=== PATIENT | male | born 1935 | race Caucasian/White ===

== ENCOUNTER 2020-12-26 10:02 | Outpatient (CLI) | payer MEDICARE, SELFPAY ==
[2020-12-26 10:50] LABS: Alanine Aminotransferase 16 U/L (4-50); Albumin Level 3.9 g/dL (3.5-5.1); Alkaline Phosphatase 85 U/L (38-126); Anion Gap 4 mmol/L (8-16); Aspartate Amino Transferase 24 U/L (17-59); Bilirubin,Total 0.6 mg/dL (0.2-1.3); Blood Urea Nitrogen 25 mg/dL (9-20); Calcium 8.9 mg/dL (8.4-10.2); Carbon Dioxide 29 mmol/L (22-30); Chloride 106 mmol/L (98-107); Cholesterol 137 mg/dL (0-200); Estimated Glomerular Filt Rate > 60; Glucose 97 mg/dL (75-110); HDL Direct 55 mg/dL; Potassium 4.1 mmol/L (3.4-5.0); Sodium 139 mmol/L (137-145); Triglycerides 60 mg/dL (<150)
[2020-12-26 11:01] LABS: LDL Cholesterol Direct 55 mg/dL
[2020-12-26 11:19] LABS: Creatinine Urine 169.7 mg/dL
[2020-12-26 11:24] LABS: MALB Creatinine Ratio < 3.5 mg/g (0-30); Microalbumin Urine Random < 6.0 mg/L (0-16.7)
[2020-12-26 11:37] LABS: Vitamin D 25 Hydroxy 47.6 ng/mL
== END 2020-12-26 10:03 | disposition home or self-care (01) ==
PROVIDERS: PCP Internal Medicine; Visit Provider Internal Medicine
DX: E11.65 Type 2 diabetes mellitus with hyperglycemia (principal); E78.5 Hyperlipidemia, unspecified; E55.9 Vitamin D deficiency, unspecified
CPT/HCPCS: 36415; 80053; 80061; 82043; 82306; 83036

== ENCOUNTER 2021-07-07 09:40 | Outpatient (CLI) | payer MEDICARE, SELFPAY ==
[2021-07-07 10:18] LABS: Alanine Aminotransferase 19 U/L (4-50); Albumin Level 4.2 g/dL (3.5-5.1); Alkaline Phosphatase 90 U/L (38-126); Anion Gap 5 mmol/L (8-16); Aspartate Amino Transferase 23 U/L (17-59); Bilirubin,Total 0.6 mg/dL (0.2-1.3); Blood Urea Nitrogen 23 mg/dL (9-20); Carbon Dioxide 30 mmol/L (22-30); Chloride 104 mmol/L (98-107); Cholesterol 150 mg/dL (0-200); Estimated Glomerular Filt Rate > 60; Glucose 101 mg/dL (65-110); HDL Direct 59 mg/dL; Potassium 4.4 mmol/L (3.4-5.0); Sodium 139 mmol/L (137-145); Triglycerides 85 mg/dL (<150)
[2021-07-07 10:30] LABS: LDL Cholesterol Direct 70 mg/dL
== END 2021-07-07 09:41 | disposition home or self-care (01) ==
PROVIDERS: PCP Internal Medicine; Visit Provider Internal Medicine
DX: E55.9 Vitamin D deficiency, unspecified (principal); I10 Essential (primary) hypertension; E78.5 Hyperlipidemia, unspecified
CPT/HCPCS: 36415; 80053; 80061; 82306

== ENCOUNTER 2022-01-12 09:11 | Outpatient (CLI) | payer MEDICARE, SELFPAY ==
[2022-01-12 09:41] LABS: Alanine Aminotransferase 17 U/L (4-50); Alkaline Phosphatase 92 U/L (38-126); Anion Gap 5 mmol/L (8-16); Aspartate Amino Transferase 23 U/L (17-59); Bilirubin,Total 0.7 mg/dL (0.2-1.3); Blood Urea Nitrogen 23 mg/dL (9-20); Calcium 8.8 mg/dL (8.4-10.2); Carbon Dioxide 28 mmol/L (22-30); Chloride 104 mmol/L (98-107); Cholesterol 156 mg/dL (0-200); Estimated Glomerular Filt Rate > 60; Glucose 106 mg/dL (65-110); HDL Direct 59 mg/dL; Potassium 4.4 mmol/L (3.4-5.0); Sodium 137 mmol/L (137-145); Triglycerides 72 mg/dL (<150)
[2022-01-12 09:53] LABS: LDL Cholesterol Direct 67 mg/dL
[2022-01-12 10:14] LABS: Prostate Specific Antigen < 0.1 ng/mL (< OR = 4.0)
[2022-01-12 10:22] LABS: Vitamin D 25 Hydroxy 54.8 ng/mL
== END 2022-01-12 09:12 | disposition home or self-care (01) ==
PROVIDERS: PCP Internal Medicine; Visit Provider Nurse Practitioner
DX: Z12.5 Encounter for screening for malignant neoplasm of prostate (principal); E78.5 Hyperlipidemia, unspecified; E55.9 Vitamin D deficiency, unspecified
CPT/HCPCS: 36415; 80053; 80061; 82306; 84153; G0103

== ENCOUNTER 2022-01-21 07:50 | Outpatient (CLI) | payer MEDICARE, SELFPAY ==
--- NOTE | ~2022-01-21 | XR_ITS ---
EXAMINATION: XR UGIAC w barium swallow EXAM DATE: 01/21/2022 08:42 INDICATION: R13.10 - Dysphagia, unspecified. TECHNIQUE: Standard single and double contrast barium esophagram and upper GI examination was perform ed by radiologist Isaac Garcia M.D. Pulsed dose reduction fluoroscopy was used with fluoroscopic time of 1.1 minutes. The DAP for this procedure was 2 Gycm2. A total of 197 images obtained for the exa m. FINDINGS: Evaluation esophagus demonstrated moderate amount of vallecular sinus residual. On one of t he swallows, penetration was demonstrated, and barium tract below the vocal cords, trace aspiration. No esophageal stricture or diverticulum. 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 Stomach otherwise unremarkable. Unremarkable duodenum. IMPRESSION: 1. Vallecular sinus residual, trace penetration and aspiration demonstrated; consider modified xiomara massey with speech pathologist. 2. Small sliding gastroesophageal hiatal hernia, reflux. Reviewed, dictated and finalized at location A. IMPRESSION: 1. Vallecular sinus residual, trace penetration and aspiration demonstrated; c onsider modified esophagram with speech pathologist. 2. Small sliding gastroesophageal hiatal hernia, reflux.
== END 2022-01-21 07:51 | disposition home or self-care (01) ==
PROVIDERS: PCP Internal Medicine; Visit Provider Internal Medicine
DX: R13.10 Dysphagia, unspecified (principal); K44.9 Diaphragmatic hernia without obstruction or gangrene
CPT/HCPCS: 74246

== ENCOUNTER 2022-04-08 14:26 | Outpatient (CLI) | payer MEDICARE, SELFPAY | END 2022-04-08 14:27 | disposition home or self-care (01) | LOC: ANHAUDASC 14:27 | PROVIDERS: PCP Internal Medicine; Visit Provider Otolaryngology | DX: H90.6 Mixed conductive and sensorineural hearing loss, bilateral (principal) | CPT/HCPCS: 92557; 92567 ==

== ENCOUNTER 2022-09-10 00:45 | Day surgery (SDC) | payer MEDICARE, SELFPAY ==
[2022-09-01 15:15] VITALS: BMI 25.4
[2022-09-10 09:37] VITALS: BP 165/87; PULSE 63; RESP 22; TEMP 36.4; O2SAT 98; BMI 25.2
--- NOTE | 2022-09-10 09:39 | PM.HPGS ---
History of Present Illness History of Present Illness Consent: Risks, benefits, and alternatives have been discussed and questions answered. Patient agrees to proceed with procedure. Chief complaint: oropharyngeal dysphagia and GERD Narrative: Delano Bruno is a 87 year old male With swallowing issues. Sometimes many hours after meal he will regurgitate food like peanuts are peaches. He had a barium swallow: UGI with barium swallow: moderate?Vallecular sinus residual, trace penetration and aspiration demonstrated and Small sliding gastroesophageal hiatal hernia, reflux-there was no evidence of esophageal stricture or diverticulum (recs reviewed). He feels that things sometimes go down the wrong throat he has not had food get stuck on the way down. Review of Systems Review of Systems: All systems reviewed & are unremarkable except as noted in HPI and below PMFSH Past Medical History Medical History Acute embolism and thrombosis of other specified deep vein of right lower extremity Aspiration into airway Bad memory Chronic pain of right knee Dermatitis, unspecified Dysphagia Essential (primary) hypertension GERD with esophagitis H/O prostate cancer Hyperlipidemia, unspecified Mixed incontinence urge and stress Other chronic pain Type 2 diabetes mellitus with hyperglycemia Vitamin D deficiency, unspecified Family History Family History Father Malignant neoplasm of prostate Patient's father is Mother Family history of heart disease in male family member before age 55 Family history of cardiovascular disease Other Family history of arthritis Family history of malignant neoplasm Hypertension Social History Social History Smoking status: Never smoker Second hand tobacco smoke exposure: No Alcohol intake: former Substance use: never Substance use type: does not use Living arrangements: with family Spiritual care concerns: No Meds Home Medications and Allergies Home Medications Medication Instructions Recorded Confirmed Type aspirin 81 mg tablet,delayed 81 mg PO DAILY 01/23/20 09/10/22 History release fluticasone propionate 50 See Rx Instructions intranasal 01/23/20 09/10/22 History mcg/actuation nasal DAILY PRN Allergy Symptoms spray,suspension propylene glycol 0.6 % eye drops 1 drop ophthalmic (eye) DAILY PRN 01/23/20 09/10/22 History (Lubricant Eye (propylene glycol)) Dry Eye(S) vitamins A,C,U-zitz-kidkyd 14,320 1 cap PO DAILY 01/23/20 09/10/22 History unit-226 mg-200 unit capsule (PreserVision AREDS) multivitamin 1 tablet PO DAILY 01/05/21 09/10/22 History simvastatin 20 mg tablet See Rx Instructions .Route 05/03/22 09/10/22 Rx .COMPLEX #90 tabs rivaroxaban 10 mg tablet (Xarelto) See Rx Instructions .Route 08/04/22 09/10/22 Rx .COMPLEX #90 tabs Allergies Allergy/AdvReac Type Severity Reaction Status Date / Time No Known Allergies Allergy Verified 09/10/22 09:36 Exam Const: General: alert Orientation/consciousness: patient oriented x3 Resp: Auscultation: clear to auscultation bilaterally Cardio: Rhythm: regular rhythm GI: GI Palp: Yes Soft to palpation and No Tenderness to palpation present (GI) Neuro: General: patient oriented x3 Assessment and Plan Assessment and plan (1) Dysphagia: Code(s): R13.10 - Dysphagia, unspecified Status: Acute Assessment and Plan: EGD with possible biopsy or dilatation or cautery.
[2022-09-10] MEDS: LACTATED RINGERS 1,000 ML 150 ML IV CONT (10:05)
--- NOTE | 2022-09-10 10:12 | WPDANESEPPF ---
Anes - Initial Pre Proc Eval Procedure: Operation Date: 09/10/22 10:30 Proposed Procedures p Esophagogastroduodenoscopy EGD - Craig Avendano MD Date/Time: 09/10/22 10:12 Surgeon: Craig Avendano MD Pre Op Diagnosis: oropharyngeal dysphagia and GERD Patient Data Age: 87 Gender: M Height: 1.75 m Weight: 77.5 kg Last Vital Signs Temp 97.6 F 09/10/22 09:37 Pulse 63 09/10/22 09:37 Resp 22 H 09/10/22 09:37 BP 165/87 H 09/10/22 09:37 Pulse Ox 98 09/10/22 09:37 O2 Del Method Room Air 09/10/22 09:37 Allergies Allergy/AdvReac Type Severity Reaction Status Date / Time No Known Allergies Allergy Verified 09/10/22 09:36 Home Medications Medication Instructions Recorded Confirmed Type aspirin 81 mg tablet,delayed 81 mg PO DAILY 01/23/20 09/10/22 History release fluticasone propionate 50 See Rx Instructions intranasal 01/23/20 09/10/22 History mcg/actuation nasal DAILY PRN Allergy Symptoms spray,suspension propylene glycol 0.6 % eye drops 1 drop ophthalmic (eye) DAILY PRN 01/23/20 09/10/22 History (Lubricant Eye (propylene glycol)) Dry Eye(S) vitamins A,C,B-wfyv-mmvlid 14,320 1 cap PO DAILY 01/23/20 09/10/22 History unit-226 mg-200 unit capsule (PreserVision AREDS) multivitamin 1 tablet PO DAILY 01/05/21 09/10/22 History simvastatin 20 mg tablet See Rx Instructions .Route 05/03/22 09/10/22 Rx .COMPLEX #90 tabs rivaroxaban 10 mg tablet (Xarelto) See Rx Instructions .Route 08/04/22 09/10/22 Rx .COMPLEX #90 tabs Patient hx anesthesia problems: none Family hx anesthesia problems: none Results Review: All pre-operative results and documents have been reviewed as part of the pre-operative evaluation. [facility] Past Medical History Medical History Acute embolism and thrombosis of other specified deep vein of right lower extremity Aspiration into airway Bad memory Chronic pain of right knee Dermatitis, unspecified Dysphagia Essential (primary) hypertension GERD with esophagitis H/O prostate cancer Hyperlipidemia, unspecified Mixed incontinence urge and stress Other chronic pain Type 2 diabetes mellitus with hyperglycemia Vitamin D deficiency, unspecified Family History Family History Father Malignant neoplasm of prostate Patient's father is Mother Family history of heart disease in male family member before age 55 Family history of cardiovascular disease Other Family history of arthritis Family history of malignant neoplasm Hypertension Social History Social History Smoking status: Never smoker Second hand tobacco smoke exposure: No Alcohol intake: former Substance use: never Substance use type: does not use Living arrangements: with family Spiritual care concerns: No Anes - Eval Final PreProcedure Day of Procedure 09/10/22 10:12 Patient weight: normal Heart: regular rate and rhythm Lungs: clear to auscultation Airway: Mallampati scale class III Neurological: alert and oriented Last oral intake: >/= 8 hours ASA classification: III Emergent: no Anesthetic plan: proceed Anesthesia type and monitoring: general GIVS and standard monitoring Results Review: All pre-operative results and documents have been reviewed as part of the pre-operative evaluation. Informed Consent: The patient's anesthetic plan and its attendant risks and benefits were discussed with the patient/family/POA. Questions were solicited and answers provided to the satisfaction of the patient/family/POA.
[2022-09-10 10:30] VITALS: BP 147/81; PULSE 61; RESP 18; O2SAT 99
[2022-09-10 10:40] VITALS: BP 123/68; PULSE 52; RESP 18; O2SAT 99
[2022-09-10 10:50] VITALS: BP 136/68; PULSE 49; RESP 18; O2SAT 99
== END 2022-09-10 11:06 | disposition home or self-care (01) ==
PROVIDERS: PCP Internal Medicine; Visit Provider Internal Medicine Gastroenterology
PROC: 0DJ08ZZ Inspection of Upper Intestinal Tract, Via Natural or Artificial Opening Endoscopic (ICD-10-PCS; CPT 43235; principal; 2022-09-10 10:30)
DX: R13.12 Dysphagia, oropharyngeal phase (principal); K21.9 Gastro-esophageal reflux disease without esophagitis; K22.2 Esophageal obstruction; Z86.718 Personal history of other venous thrombosis and embolism; I10 Essential (primary) hypertension; Z85.46 Personal history of malignant neoplasm of prostate; E78.5 Hyperlipidemia, unspecified; E11.9 Type 2 diabetes mellitus without complications; E55.9 Vitamin D deficiency, unspecified
CPT/HCPCS: 43239; 88305; J2704; J7120

== ENCOUNTER 2022-09-14 09:45 | Outpatient (CLI) | payer MEDICARE, SELFPAY ==
[2022-09-14 10:55] LABS: Basophils Absolute Auto 0.1 K/mm3 (0.0-0.1); Basophils Percent Auto 1.4 % (0.2-1.2); Eosinophils Absolute Auto 0.1 K/mm3 (0-0.3); Eosinophils Percent Auto 2.1 % (0-4.4); Hematocrit 42.4 % (42.0-52.0); Hemoglobin 13.6 g/dL (14.0-18.0); Immature Granulocyte Absolute 0.02 K/mm3 (0.00-0.031); Immature Granulocyte Percent A 0.3 % (0-0.5); Lymphocytes Absolute Auto 1.02 K/mm3 (0.9-3.2); Lymphocytes Percent Auto 17.7 % (18.3-44.2); Mean Corpuscular HGB Conc 32.1 g/dl (32-36); Mean Corpuscular Hemoglobin 31.1 pg (26-34); Mean Corpuscular Volume 96.8 fl (80-100); Mean Platelet Volume 10.4 fl (7.4-10.4); Monocytes Absolute Auto 0.5 K/mm3 (0.1-0.6); Monocytes Percent Auto 8.7 % (2.6-8.5); Neutrophils Percent Auto 69.8 % (45.5-73.1); Platelet Count Result 237 k/mm3 (150-375); Red Blood Count 4.38 M/mm3 (4.6-6.20); Red Cell Distribution Width 13.7 % (11.5-14.5); White Blood Count 5.8 K/mm3 (4.5-10.0)
[2022-09-14 11:07] LABS: Alanine Aminotransferase 21 U/L (6-50); Alkaline Phosphatase 91 U/L (38-126); Anion Gap 3 mmol/L (8-16); Aspartate Amino Transferase 24 U/L (17-59); Bilirubin,Total 0.5 mg/dL (0.2-1.3); Blood Urea Nitrogen 25 mg/dL (9-20); Calcium 8.7 mg/dL (8.4-10.2); Carbon Dioxide 32 mmol/L (22-30); Chloride 101 mmol/L (98-107); Cholesterol 165 mg/dL (0-200); Estimated Glomerular Filt Rate > 60; Glucose 96 mg/dL (65-110); HDL Direct 55 mg/dL; Potassium 4.5 mmol/L (3.4-5.0); Sodium 136 mmol/L (137-145); Triglycerides 69 mg/dL (<150)
[2022-09-14 11:17] LABS: LDL Cholesterol Direct 77 mg/dL
== END 2022-09-14 09:46 | disposition home or self-care (01) ==
LOC: ANHLAB 09:46
PROVIDERS: PCP Internal Medicine; Visit Provider Internal Medicine
DX: E78.5 Hyperlipidemia, unspecified (principal); D64.9 Anemia, unspecified; I10 Essential (primary) hypertension
CPT/HCPCS: 36415; 80053; 80061; 85025

== ENCOUNTER 2022-09-24 08:30 | Emergency (ER) | payer MEDICARE, SELFPAY ==
--- NOTE | ~2022-09-24 | XR_ITS ---
EXAMINATION: XR hip LT 2V w AP pelvis DATE: 09/24/2022 09:05 INDICATION: Pelvic pain. Left back pain. TECHNIQUE: An anteroposterior view of the pelvis and 2 views of left hip were obtained. COMPARISON: None. FINDINGS: Bone alignment is normal. No fracture. There is moderate lumbar spondylosis. There is moder ate osteoarthritis of the hips. Surgical clips overlie the pelvis. IMPRESSION: 1. Moderate osteoarthritis of the hips. Reviewed, dictated and finalized at location A. EMS REQUIREMENTS PLANNER
[2022-09-24 08:40] VITALS: BP 138/59; PULSE 66; RESP 16; TEMP 37; O2SAT 99
--- NOTE | 2022-09-24 09:18 | ED.GENADULT ---
HPI - General Adult General Chief complaint: Extremity Injury, Lower Stated complaint: lower back pain, lt side hip injury Time Seen by Provider: 09/24/22 08:55 Source: patient, family, RN notes reviewed and old records reviewed Mode of arrival: ambulatory Limitations: no limitations History of Present Illness HPI narrative: 87-year-old male accompanied by presents to [facility] with complaints of fall last evening while he was trying to put his pajama pants on in the bathroom. Patient reports that he lost his balance and fell and hit his left lower back area and hip on the ridge of the walk in shower, Patient states he mainly has pain now when he tries to turn over in bed and change positions. Patient is on blood thinner states the doctor told him he could take an Ibuprofen once in a great while and he took 2 last night. Patient able to move left hip on own power with no restriction or acute pain, denies any urinary discomfort,pain or visible blood. Patient denies hitting his head or any feelings of dizziness prior to fall or any LOC at time of fall. MD complaint: pain left lower back and hip area from falll Onset (ago): day(s) (last night at bedtime) Location: back and left Radiation: non-radiation Severity scale (1-10): 4 Treatments prior to arrival: NSAID and other (Tylenol) Related Data Home Medications Medication Instructions Recorded Confirmed aspirin 81 mg tablet,delayed 81 mg PO DAILY 01/23/20 09/24/22 release fluticasone propionate 50 See Rx Instructions intranasal 01/23/20 09/24/22 mcg/actuation nasal DAILY PRN Allergy Symptoms spray,suspension propylene glycol 0.6 % eye drops 1 drop ophthalmic (eye) DAILY PRN 01/23/20 09/24/22 (Lubricant Eye (propylene glycol)) Dry Eye(S) vitamins A,C,B-ntss-vqbxma 14,320 1 cap PO DAILY 01/23/20 09/24/22 unit-226 mg-200 unit capsule (PreserVision AREDS) multivitamin 1 tablet PO DAILY 01/05/21 09/24/22 Allergies Allergy/AdvReac Type Severity Reaction Status Date / Time No Known Allergies Allergy Verified 09/17/22 10:10 Review of Systems Review of Systems: CONSTITUTIONAL: Denies fever, chills, or sweats. EYES: Denies visual changes, redness, or discharge. ENT: Denies rhinorrhea, congestion, sore throat, or otalgia. CARDIOVASCULAR: Denies chest pain, palpitations, or edema. RESPIRATORY: Denies cough or dyspnea. GASTROINTESTINAL: Denies abdominal pain, nausea, vomiting, or diarrhea. GENITOURINARY: Denies dysuria or hematuria. SKIN: Denies rash or itching. MUSCULOSKELETAL: Reports left lower back pain and left hip region pain, joint pain, or myalgia. NEUROLOGIC: Denies headache, numbness, or weakness. PSYCHIATRIC: Denies anxiety or depression. All systems reviewed & are unremarkable except as noted in HPI and below PMFSH Past Medical History Medical History (Updated 09/24/22 @ 18:17 by Rin Meyer NP) Acute embolism and thrombosis of other specified deep vein of right lower extremity Aspiration into airway Bad memory Chronic pain of right knee Dermatitis, unspecified Dysphagia Essential (primary) hypertension GERD with esophagitis H/O prostate cancer Hyperlipidemia, unspecified Mixed incontinence urge and stress Other chronic pain Type 2 diabetes mellitus with hyperglycemia Vitamin D deficiency, unspecified Surgical History Surgical History (Updated 09/24/22 @ 18:18 by Rin Meyer NP) H/O bilateral inguinal hernia repair H/O cataract removal with insertion of prosthetic lens bilateral H/O heart artery stent H/O umbilical hernia repair Status post total knee replacement, right Family History Family History Father Malignant neoplasm of prostate Patient's father is Mother Family history of heart disease in male family member before age 55 Family history of cardiovascular disease Other Family history of arthritis Family history of malignant neoplasm Hypertension
== END 2022-09-24 09:49 | disposition home or self-care (01) ==
PROVIDERS: Emergency Provider Registered Nurse; PCP Internal Medicine
DX: M25.552 Pain in left hip (principal); M54.50 Low back pain, unspecified; I10 Essential (primary) hypertension; K21.00 Gastro-esophageal reflux disease with esophagitis, without bleeding; E78.5 Hyperlipidemia, unspecified; E11.9 Type 2 diabetes mellitus without complications; Z86.718 Personal history of other venous thrombosis and embolism; Z85.46 Personal history of malignant neoplasm of prostate; Z98.42 Cataract extraction status, left eye; Z98.41 Cataract extraction status, right eye; Z96.1 Presence of intraocular lens; Z95.5 Presence of coronary angioplasty implant and graft; Z96.651 Presence of right artificial knee joint; Z79.82 Long term (current) use of aspirin
CPT/HCPCS: 73502; 99213; G0463

== ENCOUNTER → 2022-10-14 15:09 | Outpatient (CLI) | payer MEDICARE, SELFPAY ==
--- NOTE | ~2022-10-14 | XR_ITS ---
XR chest 2V DATE: 10/14/2022 15:30 INDICATION: Burning chest pain TECHNIQUE: 2 views COMPARISON: None FINDINGS: There is bilateral hyperinflation suggesting COPD. No pulmonary infiltrate or consolidation , pleural effusion or pulmonary vascular congestion or pneumothorax is detected. Normal heart size. Mild aortic tortuosity. No hilar or mediastinal enlargement. Diffuse osteopenia. Left rotator cuff atrophy. IMPRESSION: Bilateral hyperinflation suggesting COPD Reviewed, dictated and finalized at location A. GE REGISTER NURSE
== END ==
PROVIDERS: PCP Internal Medicine; Visit Provider Nurse Practitioner Adult Health
DX: J98.4 Other disorders of lung (principal); R07.89 Other chest pain
CPT/HCPCS: 71046

== ENCOUNTER 2022-10-18 12:01 | Inpatient (IN) | payer MEDICARE, SELFPAY ==
[2022-10-18] VITALS (20 sets, daily range): BP systolic 124–150; BP diastolic 52–85; PULSE 40–89; RESP 9–25; TEMP 36.2–36.7; O2SAT 97–100; BMI 24.6
--- NOTE | ~2022-10-18 | XR_ITS ---
XR chest 1V portable 10/18/2022 12:25 Indication: Chest pressure Procedure: AP portable chest Comparison: 10/14/2022 Findings: Heart size upper normal. No focal air space disease, pulmonary edema, pleural effusion or s uspected pneumothorax. The lungs are hyperinflated which is consistent with, but not diagnostic of ch ronic obstructive pulmonary disease. Prominent left nipple shadow. Impression: 1: No acute cardiopulmonary disease. Reviewed, dictated and finalized at location A. EE FARMER Impression: 1: No acute cardiopulmonary disease.
--- NOTE | 2022-10-18 12:04 | ECG_ITS ---
Measurements Intervals [place] Rate: 52 P: 68 PA: 174 QRS: 55 QRSD: 92 T: 87 QT: 480 QTc: 448 Interpretive Statements SINUS BRADYCARDIA POSSIBLE LEFT ATRIAL ENLARGEMENT DELAYED PRECORDIAL R/S TRANSITION T WAVE ABNORMALITY IN ANTERIOR LEADS- CONSIDER ISCHEMIA BASELINE ARTIFACT- II, III ABNORMAL ECG NO PREVIOUS ECG AVAILABLE FOR COMPARISON Electronically Signed On 10-18-2022 12:11:22 PROJECT ARCHITECT by Kennedy Vincent D.O.
--- NOTE | 2022-10-18 12:13 | ED.CHESTPAIN ---
HPI - Chest Pain General Chief Complaint: Recheck/Abnormal Lab/Rx Stated Complaint: ekg changes, syncopal at plastic molder office History of Present Illness HPI narrative: Pt sent to ER from stress lab. Pt had CP and SOB per EMS during stress test. Pt was given nitro SL after and CP resolved. Pt was told he could get dressed and then pt felt lightheaded and weak and had syncopal episode. Pt currently is pain free and says he feels better now. Pt received IVF bolus from EMS. Pt says has been having intermittent CP and SOB for last few weeks. Pt also tested positive for covid a couple of weeks ago. Related Data Home Medications Medication Instructions Recorded Confirmed aspirin 81 mg tablet,delayed 81 mg PO HS 01/23/20 10/18/22 release fluticasone propionate 50 See Rx Instructions intranasal 01/23/20 10/18/22 mcg/actuation nasal DAILY PRN Allergy Symptoms spray,suspension propylene glycol 0.6 % eye drops 1 drop ophthalmic (eye) DAILY PRN 01/23/20 10/18/22 (Lubricant Eye (propylene glycol)) Dry Eye(S) vitamins A,C,C-imuc-ijpxkf 14,320 1 cap PO DAILY 01/23/20 10/18/22 unit-226 mg-200 unit capsule (PreserVision AREDS) rivaroxaban 10 mg tablet (Xarelto) 10 mg PO DAILY 10/18/22 10/18/22 simvastatin 20 mg tablet 20 mg PO HS 10/18/22 10/18/22 Allergies Allergy/AdvReac Type Severity Reaction Status Date / Time No Known Allergies Allergy Verified 09/17/22 10:10 Review of Systems Review of Systems: All systems reviewed & are unremarkable except as noted in HPI and below PMFSH Past Medical History Medical History (Updated 10/18/22 @ 18:31 by Elena Miller III, DO) Acute embolism and thrombosis of other specified deep vein of right lower extremity Chronic anticoagulation Chronic pain of right knee Coronary artery disease Stent to diagonal in March 2013. Diverticulosis Dyslipidemia Gastroesophageal reflux disease Hypertension Kidney stones Mixed incontinence urge and stress Prostate cancer (2002) Pulmonary embolism (2002) Following prostatectomy. Type 2 diabetes mellitus Vitamin D deficiency Surgical History Surgical History (Updated 10/18/22 @ 14:58 by Meagan Forde PA-C) History of arthroscopy of both knees History of bilateral inguinal hernia repair History of cardiac catheterization March 2013: Stent to diagonal 1. November 2014: No significant obstructive lesions. Stent to D1 ostium widely patent. 40 to 50% OM and 40% distal RCA (no change consistent with 2012). History of cataract extraction with lens replacement History of colonoscopy with polypectomy History of coronary artery stent placement Stent to diagonal branch in March 2013. History of esophagogastroduodenoscopy (09/2022) Schatzki's ring. History of prostatectomy (2002) History of repair of right rotator cuff (07/2015) History of right knee joint replacement History of tonsillectomy and adenoidectomy History of ventral hernia repair Family History Family History Father Malignant neoplasm of prostate Patient's father is Mother Family history of heart disease in male family member before age 55 Family history of cardiovascular disease Other Family history of arthritis Family history of malignant neoplasm Hypertension Social History Social History (Updated 10/18/22 @ 14:59 by Meagan Forde PA-C) Social History: Surrogate medical decision maker: Luci Bruno (spouse) or Rin Cooper (daughter). Code status: Full code. Smoking status: Never smoker Second hand tobacco smoke exposure: No Alcohol intake: never Substance use: never Substance use type: does not use Lack of Transportation: No Lack of Food: Never True Current Housing: Decline to Answer Concerned About Future Housing: Decline to Answer Difficulty Paying Gas/Electric Bills: Decline to Answer Difficulty Paying for Meds: Decline to Answer Currently Unem
[2022-10-18 12:19] LABS: Basophils Absolute Auto 0.1 K/mm3 (0.0-0.1); Basophils Percent Auto 1.4 % (0.2-1.2); Eosinophils Absolute Auto 0.1 K/mm3 (0-0.3); Hematocrit 38.2 % (42.0-52.0); Hemoglobin 12.5 g/dL (14.0-18.0); Immature Granulocyte Absolute 0.02 K/mm3 (0.00-0.031); Immature Granulocyte Percent A 0.4 % (0-0.5); Lymphocytes Absolute Auto 1.13 K/mm3 (0.9-3.2); Lymphocytes Percent Auto 22.1 % (18.3-44.2); Mean Corpuscular HGB Conc 32.7 g/dl (32-36); Mean Corpuscular Hemoglobin 31.4 pg (26-34); Monocytes Absolute Auto 0.4 K/mm3 (0.1-0.6); Monocytes Percent Auto 6.8 % (2.6-8.5); Neutrophils Absolute Auto 3.4 K/mm3 (1.3-6.7); Neutrophils Percent Auto 67.3 % (45.5-73.1); Platelet Count Result 265 k/mm3 (150-375); Red Blood Count 3.98 M/mm3 (4.6-6.20); White Blood Count 5.1 K/mm3 (4.5-10.0)
[2022-10-18 12:30] LABS: Alanine Aminotransferase 22 U/L (6-50); Albumin Level 3.6 g/dL (3.5-5.1); Alkaline Phosphatase 105 U/L (38-126); Anion Gap 3 mmol/L (8-16); Aspartate Amino Transferase 23 U/L (17-59); Bilirubin,Total 0.6 mg/dL (0.2-1.3); Blood Urea Nitrogen 24 mg/dL (9-20); Calcium 8.4 mg/dL (8.4-10.2); Carbon Dioxide 27 mmol/L (22-30); Chloride 102 mmol/L (98-107); Estimated CRCL calculation 52 ml/min; Estimated Glomerular Filt Rate > 60; Glucose 140 mg/dL (65-110); Lipase 87 U/L (23-300); Potassium 4.2 mmol/L (3.4-5.0); Sodium 132 mmol/L (137-145)
[2022-10-18 12:35] LABS: INR 1.2; Prothrombin Time 14.8 Seconds (11.1-14.7)
[2022-10-18] MEDS: ASPIRIN 81 MG CHEWABLE TABLET 324 MG PO (12:40)
[2022-10-18 12:45] LABS: Troponin I 0.086 ng/mL (0.000-0.034)
[2022-10-18 12:48] LABS: NT Pro B Type Natriuretic Pept 950 pg/mL (19.9-100)
[2022-10-18 12:55] LABS: Influenza A QL RT-PCR Negative (Negative); Influenza B QL RT-PCR Negative (Negative); SARS-CoV-2 RNA PCR Positive
--- NOTE | 2022-10-18 14:00 | PM.IMHP ---
H&P: HPI History of Present Illness Date/Time: 10/18/22 14:00 Chief Complaint: Syncope following stress test with EKG changes. 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 He and his family visited 1 of their sons in [place], [place] over [place] time and several of them, including the patient, came down with COVID. His symptoms have improved though he continues to have episodes of shortness of breath (patient reports a burning sensation with deep inspiration) and occasional aching discomfort in his arms and left side. The aching discomfort in the arms and side tend to occur with activity and are improved with rest. 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 During that test he reportedly had some EKG changes and once again started to have mild shortness of breath and arm discomfort. The test was stopped and he was given a nitroglycerin tablet with resolution of his symptoms. He was told that he could get dressed and return to the dental front office assistant. Once he stood up however he became extremely weak and nearly blacked out; luckily staff for there to help him. He was brought to the ED for evaluation and he is being admitted for Cardiology consultation possible cardiac catheterization tomorrow. Troponin is mildly elevated but has remained flat with a peak troponin 0.095. At the time my evaluation he is resting comfortably and has no complaints. He specifically denies vertigo, lightheadedness, dizziness, current chest pain, pleuritic pain, current shortness of breath, nausea, vomiting, and sweats. Review of Systems Review of Systems: Twelve systems were reviewed and are negative except for as per HPI. [facility] Past Medical History Medical History Acute embolism and thrombosis of other specified deep vein of right lower extremity Chronic anticoagulation Chronic pain of right knee Coronary artery disease Stent to diagonal in March 2013. Diverticulosis Dyslipidemia Gastroesophageal reflux disease Hypertension Kidney stones Mixed incontinence urge and stress Prostate cancer (2002) Pulmonary embolism (2002) Following prostatectomy. Type 2 diabetes mellitus Vitamin D deficiency Surgical History Surgical History History of arthroscopy of both knees History of bilateral inguinal hernia repair History of cardiac catheterization March 2013: Stent to diagonal 1. November 2014: No significant obstructive lesions. Stent to D1 ostium widely patent. 40 to 50% OM and 40% distal RCA (no change consistent with 2012). History of cataract extraction with lens replacement History of colonoscopy with polypectomy History of coronary artery stent placement Stent to diagonal branch in March 2013. History of esophagogastroduodenoscopy (09/2022) Schatzki's ring. History of prostatectomy (2002) History of repair of right rotator cuff (07/2015) History of right knee joint replacement History of tonsillectomy and adenoidectomy History of ventral hernia repair Family History Family History Father Malignant neoplasm of prostate Patient's father is Mother Family history of heart disease in male family member before age 55 Family history of cardiovascular disease Other Family history of arthritis Family history of malignant neoplasm Hypertension Social History Social History Social History: Surrogate medical decision maker: Luci Bruno (spouse) or Rin Cooper (daughter). Code status:
[2022-10-18] MEDS: HEPARIN SODIUM 5,000 UNITS/ML VIAL 4000 UNITS IV PUSH (14:01)
[2022-10-18] MEDS: HEPARIN SOD/D5W 100 UNITS/ML 25,000 UNITS/250 ML BAG 9 UNITS IV CONT (14:02)
--- NOTE | 2022-10-18 15:38 | ADMGEN ---
This patient, Delano Bruno, was admitted to IMU Room 232-01. Patient/family oriented to hospital policies and general routines including ID bracelet, bed and alarms, visiting hours, pain management, procedures, bathroom and other care routines, personal items, smoking policy, room service/diet, and visiting hours. Information on how to activate the Rapid Response Team has been discussed. Patient/Family are encouraged to report perceived risks to care and to ask questions if they do not understand what they are told or what they should do.
[2022-10-18 16:24] LABS: Troponin I 0.095 ng/mL (0.000-0.034)
[2022-10-18 19:37] LABS: Troponin I 0.075 ng/mL (0.000-0.034)
[2022-10-19] VITALS (28 sets, daily range): BP systolic 119–187; BP diastolic 60–92; PULSE 47–70; RESP 12–24; TEMP 36.1–36.6; O2SAT 96–100
[2022-10-19 03:38] LABS: Hematocrit 36.2 % (42.0-52.0); Hemoglobin 11.9 g/dL (14.0-18.0); Mean Corpuscular HGB Conc 32.9 g/dl (32-36); Mean Corpuscular Hemoglobin 31.6 pg (26-34); Mean Corpuscular Volume 96.3 fl (80-100); Mean Platelet Volume 10.1 fl (7.4-10.4); Platelet Count Result 227 k/mm3 (150-375); Red Blood Count 3.76 M/mm3 (4.6-6.20); Red Cell Distribution Width 14.2 % (11.5-14.5); White Blood Count 5.6 K/mm3 (4.5-10.0)
[2022-10-19 03:46] LABS: Anion Gap 4 mmol/L (8-16); Blood Urea Nitrogen 20 mg/dL (9-20); Calcium 8.4 mg/dL (8.4-10.2); Carbon Dioxide 26 mmol/L (22-30); Chloride 103 mmol/L (98-107); Cholesterol 130 mg/dL (0-200); Estimated CRCL calculation 55 ml/min; Estimated Glomerular Filt Rate > 60; Glucose 98 mg/dL (65-110); HDL Direct 50 mg/dL; Magnesium 2.1 mg/dL (1.6-2.3); Sodium 133 mmol/L (137-145); Triglycerides 53 mg/dL (<150)
[2022-10-19 03:56] LABS: LDL Cholesterol Direct 59 mg/dL
[2022-10-19 04:43] LABS: Thyroid Stimulating Hormone Reflex 0.866 uIU/mL (0.465-4.68)
[2022-10-19 04:52] LABS: Partial Thromboplastin Time 49.5 SECONDS (22.3-36.8)
[2022-10-19] MEDS: HEPARIN SODIUM 5,000 UNITS/ML VIAL 4000 UNITS IV PUSH (05:08)
--- NOTE | 2022-10-19 07:54 | PM.IMPN ---
Progress Note: A&P Assessment and Plan (1) Near syncope: Code(s): R55 - Syncope and collapse Status: Acute Assessment and Plan: Suspect this is secondary to exertion too soon after being given nitro, monitor, check orthostatics (2) Abnormal stress electrocardiogram test: Code(s): R94.39 - Abnormal result of other cardiovascular function study Status: Acute Assessment and Plan: Continue to trend troponins, appreciate cardiology consultation Cardio rec heart cath, performed today, showing significant disease, concerning for need for CABG (3) Bradycardia: Code(s): R00.1 - Bradycardia, unspecified Status: Acute Assessment and Plan: Stable (4) Elevated troponin: Code(s): R77.8 - Other specified abnormalities of plasma proteins Status: Acute (5) SARS-CoV-2 positive: Code(s): U07.1 - COVID-19 Status: Acute Assessment and Plan: Asymptomatic (6) Coronary artery disease: Code(s): I25.10 - Atherosclerotic heart disease of [place] coronary artery without angina pectoris Status: Acute (7) Dyslipidemia: Code(s): E78.5 - Hyperlipidemia, unspecified Status: Acute (8) Chronic anticoagulation: Code(s): Z79.01 - truck terminal manager (current) use of anticoagulants Status: Acute Plan DVT prophylaxis with heparin GI prophylaxis with PPI Code status full code Subjective Date/time seen: 10/19/22 07:54 Interval history: No overnight events noted. No chest pain or shortness of breath. No nausea, vomiting or diarrhea. No fevers or chills. Review of Systems Review of Systems: 12 point review of systems was assessed and was negative except as noted in the HPI Exam Narrative: General: No acute distress, alert and oriented per baseline HEENT: Atraumatic, normocephalic, mucous membranes moist CV: Regular rate and rhythm, S1, S2 soft systolic murmur noted Lungs: Clear to auscultation bilaterally, no rales or crackles noted, no wheezes, good air entry Abdomen: Soft, nontender, nondistended Extremities: Normal to inspection Skin: No rashes noted, no lesions or wounds seen Psych: Euthymic, normal affect Objective Data Vital Signs Vital Signs: Vital Signs - 24 hr 10/18/22 11:51 10/18/22 12:26 10/18/22 12:38 Temperature 97.2 F L Pulse Rate 49 L 40 L 43 L Respiratory Rate 13 13 12 Blood Pressure 127/65 124/52 L Pulse Oximetry 99 98 Oxygen Delivery 10/18/22 12:50 10/18/22 13:16 10/18/22 13:17 Temperature Pulse Rate 47 L 48 L 45 L Respiratory Rate 25 H 11 L 10 L Blood Pressure 139/65 Pulse Oximetry Oxygen Delivery 10/18/22 13:35 10/18/22 13:47 10/18/22 14:01 Temperature Pulse Rate 44 L 54 L 53 L Respiratory Rate 16 9 L 20 Blood Pressure Pulse Oximetry Oxygen Delivery 10/18/22 14:02 10/18/22 14:15 10/18/22 14:42 Temperature Pulse Rate 53 L 51 L 54 L Respiratory Rate 15 16 Blood Pressure 139/85 Pulse Oximetry Oxygen Delivery 10/18/22 14:56 10/18/22 15:48 10/18/22 16:00 Temperature 97.3 F L Pulse Rate 57 L 56 L 57 L Respiratory Rate 14 16 Blood Pressure 128/74 147/76 H Pulse Oximetry 98 97 Oxygen Delivery 10/18/22 18:00 10/18/22 16:00 10/18/22 20:00 Temperature 98.0 F Pulse Rate 89 58 L Respiratory Rate 20 Blood Pressure 139/63 Pulse Oximetry 100 Oxygen Delivery Room Air 10/18/22 20:00 10/18/22 20:18 10/18/22 20:18 Temperature Pulse Rate Respiratory Rate Blood Pressure 136/64 148/62 H 140/78 Pulse Oximetry Oxygen Delivery 10/18/22 20:00 10/18/22 20:00 10/18/22 22:00 Temperature Pulse Rate 53 L 53 L 70 Respiratory Rate 20 Blood Pressure Pulse Oximetry 100 Oxygen Delivery Room Air 10/18/22 23:11 10/19/22 00:00 10/19/22 00:00 Temperature 97.8 F Pulse Rate 61 53 L 53 L Respiratory Rate 20 20 Blood Pressure 150/80 H Pulse Oximetry 97 97 Oxygen Deliver
[2022-10-19] MEDS: PANTOPRAZOLE SODIUM IV 40 MG VIAL IV PUSH (08:56)
--- NOTE | 2022-10-19 09:34 | PM.CNCAR ---
Assessment and Plan Assessment and plan (1) Acute non-ST elevation myocardial infarction (NSTEMI): Code(s): I21.4 - Non-ST elevation (NSTEMI) myocardial infarction Status: Acute (2) Chronic anticoagulation: Code(s): Z79.01 - ferry terminal supervisor (current) use of anticoagulants Status: Acute (3) SARS-CoV-2 positive: Code(s): U07.1 - COVID-19 Status: Acute (4) Abnormal stress electrocardiogram test: Code(s): R94.39 - Abnormal result of other cardiovascular function study Status: Acute (5) Dyslipidemia: Code(s): E78.5 - Hyperlipidemia, unspecified Status: Acute (6) Hypertension: Code(s): I10 - Essential (primary) hypertension Status: Acute (7) Coronary artery disease: Code(s): I25.10 - Atherosclerotic heart disease of [place] coronary artery without angina pectoris Status: Acute (8) Type 2 diabetes mellitus: Code(s): E11.9 - Type 2 diabetes mellitus without complications Status: Acute Plan Will plan for cardiac cath today. Continue ASA 81mg once daily. Will load with Plavix prior to cath. Continue statin. History of Present Illness History of Present Illness Consult date/time: 10/19/22 09:34 Requesting physician: Meagan Forde PA-C Consult reason: Other (NSTEMI) Reason For Visit: NSTEMI/Syncope/Unstable Angina Narrative: This is an 87-year-old male with a history of CAD s/p prior Diagonal stent, mild aortic stenosis, recent COVID infection, hyperlipidemia who was recently seen in our office for chest pain. Patient was scheduled for an echocardiogram and stress test 10/18. Echocardiogram was done which showed LVEF 60%, no focal wall motion abnormalities, moderate MR, mild-moderate , mild pulmonic regurgitation. During the stress MPI, patient was on the treadmill and had complained of chest pain. Noted to have ST depressions on the ECG. He was given some NTG. After completing the stress test, patient was getting dressed and then he was found sitting in bed slumped against the wall. Patient was reportedly unresponsive at first. BP at that time 130/80. While awaiting transfer to the ER, patient reportedly had a syncopal episode. Patient was noted to be diaphoretic, Patient became responsive. ER evaluation showed positive COVID test. Troponins mildly elevated at 0.086 --> 0.095 --> 0.075. EKG on admission showed sinus bradycardia, T-wave abnormality in the anterolateral leads. Patient denies any chest pain this morning. No shortness of breath, lightheadedness/dizziness. Patient has been NPO since midnight. Took his last Xarelto dose on Tuesday. He is on Xarelto for recurrent DVTs. Review of Systems Review of Systems: 12-point ROS obtained. Negative, unless stated in HPI. [facility] Past Medical History Medical History Acute embolism and thrombosis of other specified deep vein of right lower extremity Chronic anticoagulation Chronic pain of right knee Coronary artery disease Stent to diagonal in March 2013. Diverticulosis Dyslipidemia Gastroesophageal reflux disease Hypertension Kidney stones Mixed incontinence urge and stress Prostate cancer (2002) Pulmonary embolism (2002) Following prostatectomy. Type 2 diabetes mellitus Vitamin D deficiency Surgical History Surgical History History of arthroscopy of both knees History of bilateral inguinal hernia repair History of cardiac catheterization March 2013: Stent to diagonal 1. November 2014: No significant obstructive lesions. Stent to D1 ostium widely patent. 40 to 50% OM and 40% distal RCA (no change consistent with 2012). History of cataract extraction with lens replacement History of colonoscopy with polypectomy History of coronary artery stent placement Stent to diagonal branch in March 2013. History of esophagogastroduodenoscopy (09/2022) Schatzki's ring. History of prost
--- NOTE | 2022-10-19 09:46 | WPDMODSED ---
Moderate Sedation Note-Pt Data Patient Data Diagnosis: CAD, NSTEMI Present Complaint: CAD, NSTEMI Procedure to be performed/Plan: Coronary angiography, LHC, +/- PCI Allergies Allergy/AdvReac Type Severity Reaction Status Date / Time No Known Allergies Allergy Verified 09/17/22 10:10 Home Medications Medication Instructions Recorded Confirmed Type aspirin 81 mg tablet,delayed 81 mg PO HS 01/23/20 10/18/22 History release fluticasone propionate 50 See Rx Instructions intranasal 01/23/20 10/18/22 History mcg/actuation nasal DAILY PRN Allergy Symptoms spray,suspension propylene glycol 0.6 % eye drops 1 drop ophthalmic (eye) DAILY PRN 01/23/20 10/18/22 History (Lubricant Eye (propylene glycol)) Dry Eye(S) vitamins A,C,U-pyva-hrcejf 14,320 1 cap PO DAILY 01/23/20 10/18/22 History unit-226 mg-200 unit capsule (PreserVision AREDS) rivaroxaban 10 mg tablet (Xarelto) 10 mg PO DAILY 10/18/22 10/18/22 History simvastatin 20 mg tablet 20 mg PO HS 10/18/22 10/18/22 History Current Medications: Active Medications Artificial Tears (Artificial Tears Ophth Soln 15 Ml Bottle) 1 drop EACH EYE DAILY PRN PRN Reason: Dry Eye(s) Fluticasone Propionate (Fluticasone Propionate 0.05% Na Spr 16 Gm Btl (*Bkc)) 1 - 2 spray NASAL DAILY PRN PRN Reason: Allergy Symptoms Heparin Sodium (Porcine) (Heparin Sodium 5,000 Units/Ml Vial) 4,000 units IV PUSH PRN PRN PRN Reason: aPTT less than 55 seconds Last Admin: 10/19/22 05:08 Dose: 4,000 units Heparin Sodium (Porcine) (Heparin Sodium 5,000 Units/Ml Vial) 3,000 units IV PUSH PRN PRN PRN Reason: aPTT 55 - 70 seconds Heparin Sodium/Dextrose (Heparin Sodium/D5w 100 Units/Ml) 25,000 units in 250 mls @ 12 mls/hr IV CONT .[id number] STA; Protocol Stop: 10/19/22 10:38 Last Infusion: 10/19/22 05:06 Dose: 1,200 units/hr, 12 mls/hr Sodium Chloride (Normal Saline Iv) 500 mls @ 100 mls/hr IV CONT .Q5H [facility] Multivitamins/Minerals (Opti-Gen Tab) 1 tablet PO QAM [facility] Pantoprazole Sodium (Pantoprazole Sodium Iv 40 Mg Vial) 40 mg IV PUSH QAM AP[facility] Last Admin: 10/19/22 08:56 Dose: 40 mg Simvastatin (Simvastatin 20 Mg Tablet) 20 mg PO HS [facility] Sedation/Anesthesia: No previous sedation/anesthesia problems (including family history). ON LICENSE OF [facility] Past Medical History Medical History Acute embolism and thrombosis of other specified deep vein of right lower extremity Chronic anticoagulation Chronic pain of right knee Coronary artery disease Stent to diagonal in March 2013. Diverticulosis Dyslipidemia Gastroesophageal reflux disease Hypertension Kidney stones Mixed incontinence urge and stress Prostate cancer (2002) Pulmonary embolism (2002) Following prostatectomy. Type 2 diabetes mellitus Vitamin D deficiency Surgical History Surgical History History of arthroscopy of both knees History of bilateral inguinal hernia repair History of cardiac catheterization March 2013: Stent to diagonal 1. November 2014: No significant obstructive lesions. Stent to D1 ostium widely patent. 40 to 50% OM and 40% distal RCA (no change consistent with 2012). History of cataract extraction with lens replacement History of colonoscopy with polypectomy History of coronary artery stent placement Stent to diagonal branch in March 2013. History of esophagogastroduodenoscopy (09/2022) Schatzki's ring. History of prostatectomy (2002) History of repair of right rotator cuff (07/2015) History of right knee joint replacement History of tonsillectomy and adenoidectomy History of ventral hernia repair Family History Family History Father Malignant neoplasm of prostate Patient's father is Mother Family history of heart disease in male family member before age 55 Family history of cardiovascular disease Other Family history of arthritis
--- NOTE | 2022-10-19 09:48 | WPDCARDPROC ---
Cardiac Cath Procedure Note Date of procedure:: 10/19/22 Performing physician:: CATHETERIZATION LABORATORY REPORT Procedure Date: 10/19/2022 Take Off Worker: Guillermo Owens M.D., [facility]? Referring Physician: Guillermo Owens M.D. ? Anesthesia: Versed and Fentanyl were ordered and given in my presence at 10:06, procedure ended at 10:28. Supervision of nurse monitored moderate sedation with Versed and Fentanyl was provided for 22 minutes. Total of Versed 2mg and Fentanyl 50mcg were administered by the Auxiliary Equipment Operator RN Cheli Maharaj. Pre-op Diagnosis: Coronary artery disease Post-op Diagnosis: Multivessel coronary artery disease Left ventricular end-diastolic pressure of 20mmHg Procedure(s): Left heart catheterization with coronary angiography Access Site: Right radial artery Brief History and Clinical Indications: Patient is an 87-year-old male with a history of CAD s/p prior Diagonal stent, mild aortic stenosis, recent COVID infection, hyperlipidemia who was recently seen in our office for chest pain. Patient was scheduled for an echocardiogram and stress test 10/18. Echocardiogram was done which showed LVEF 60%, no focal wall motion abnormalities, moderate MR, mild-moderate , mild pulmonic regurgitation. During the stress MPI, patient was on the treadmill and had complained of chest pain. Noted to have ST depressions on the ECG. He was given some NTG. After completing the stress test, patient was getting dressed and then he was found sitting in bed slumped against the wall. Patient was reportedly unresponsive at first. BP at that time 130/80. While awaiting transfer to the ER, patient reportedly had a syncopal episode. Patient was noted to be diaphoretic, Patient became responsive. ER evaluation showed positive COVID test. Troponins mildly elevated at 0.086 --> 0.095 --> 0.075. EKG on admission showed sinus bradycardia, T-wave abnormality in the anterolateral leads. Given this, patient referred for cardiac cath for ischemic evaluation. All risks, benefits and alternatives to left heart catheterization with or without percutaneous coronary intervention was discussed at length with the patient. Risk of complications including but not limited to bleeding, infection, arrhythmia, stroke, worsening kidney function, blood loss, groin hematoma, limb loss, emergency coronary artery bypass grafting, and even were discussed with the patient and all questions were answered. The patient understood and wished to proceed. Time out called, patient name, date of , medical record number, allergies, procedure performed, identify Take Off Worker, patient and staff member concurred with accurate data, procedure carried on. Findings: LEFT HEART CATHETERIZATION FINDINGS: 1. Left main: The left main coronary artery is widely patent without any significant obstructive disease. Large caliber vessel. 2. Left anterior descending: The proximal LAD has a significant 95-99% stenosis, followed by a diseased proximal-mid LAD segment with up to 70-80% stenosis. Diagonal-1 is a small caliber vessel with ostial 99% stenosis. Diagonal-2 has a patent stent in its ostial-proximal segment. Remainder of Diagonal-2 vessel has mild luminal irregularities. The mid LAD at the level of the bifurcation of Diagonal-2 has a significant hazy obstructive lesion. Remainder of the LAD has mild diffuse disease. 3. Left circumflex: The proximal LCX has mild luminal irregularities. OM-1 has mild-moderate 40% disease in its proximal portion; remainder of vessel has mild luminal irregularities. OM-2 has a proximal 90% stenosis. Distal to this stenosis, remainder of OM-2 has mild diffuse disease. 4. Right coronary artery: The RCA is a large caliber vessel. The RCA is the dominant vessel. The proximal RCA has mild diffuse disease. The mid RCA has diffuse disease with an eccentric 70-80% stenosis. The distal RCA has diffuse disease with a moderate 50-60% stenosis prior to the bifurcation of th
[2022-10-19 10:06] LABS: Partial Thromboplastin Time 165.6 SECONDS (22.3-36.8)
[2022-10-19] MEDS: SODIUM CHLORIDE 0.9% IV 500 ML 100 ML IV CONT (10:06)
[2022-10-19 12:21] LABS: Hemoglobin A1C 5.4 % (<5.7)
[2022-10-19] MEDS: SODIUM CHLORIDE 0.9% IV 1,000 ML 125 ML IV CONT (15:02)
[2022-10-19] MEDS: SIMVASTATIN 20 MG TABLET PO (21:35)
[2022-10-19 22:35] LABS: INR 1.2; Prothrombin Time 14.5 Seconds (11.1-14.7)
[2022-10-19 22:36] LABS: Partial Thromboplastin Time 30.2 SECONDS (22.3-36.8)
[2022-10-19] MEDS: HEPARIN SOD/D5W 100 UNITS/ML 25,000 UNITS/250 ML BAG 9 UNITS IV CONT (22:46)
[2022-10-20] VITALS (14 sets, daily range): BP systolic 124–172; BP diastolic 50–83; PULSE 45–77; RESP 16–20; TEMP 36.4–36.6; O2SAT 96–100
[2022-10-20] MEDS: HEPARIN SODIUM 5,000 UNITS/ML VIAL 3000 UNITS IV PUSH (06:48)
--- NOTE | 2022-10-20 08:41 | PM.IMPN ---
Progress Note: A&P Assessment and Plan (1) Coronary artery disease: Code(s): I25.10 - Atherosclerotic heart disease of [place] coronary artery without angina pectoris Status: Acute Assessment and Plan: Patient underwent left heart catheterization on 10/19/2022 showing multivessel coronary disease. Plan is for patient to be transferred to [facility] for CT surgery evaluation for possible surgical intervention. Continue aspirin. LFTs are normal. Will change statin for high-intensity therapy. BP noted but no hx of HTN. Medications adjusted per soldering machine tender. Discussed with soldering machine tender and plan reviewed. Continue heparin drip. (2) Acute non-ST elevation myocardial infarction (NSTEMI): Code(s): I21.4 - Non-ST elevation (NSTEMI) myocardial infarction Status: Acute Assessment and Plan: Troponin elevated but flat. EKG reviewed personally showing sinus bradycardia rate of 52 with 2 abnormalities in the anterior leads. This corresponds to the official read Cardiology reading. As above. Continue aggressive medical management until such time as he is able to be transferred to a tertiary care center for further evaluation for his multivessel coronary disease. (3) Near syncope: Code(s): R55 - Syncope and collapse Status: Acute Assessment and Plan: Suspect this is secondary to exertion too soon after being given nitro and significant multiple vessel CAD. As above (4) Abnormal stress electrocardiogram test: Code(s): R94.39 - Abnormal result of other cardiovascular function study Status: Acute Assessment and Plan: Abnormal stress test related to underlying multivessel coronary disease. (5) Bradycardia: Code(s): R00.1 - Bradycardia, unspecified Status: Acute Assessment and Plan: Only mild bradycardia noted at night. TSH normal. Not on beta blockade for this reason. Check ApneaLink to exclude obstructive sleep apnea. (6) SARS-CoV-2 positive: Code(s): U07.1 - COVID-19 Status: Acute Assessment and Plan: Wilfredo was COVID positive over the holiday season and remains positive here but asymptomatic. CXR reviewed personally and showing clear lung faustin that concurs with the radiologists finding. (7) Dyslipidemia: Code(s): E78.5 - Hyperlipidemia, unspecified Status: Acute Assessment and Plan: Lipid panel noted. 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 Related history of VTE. Xarelto on hold. Plan DVT prophylaxis with heparin GI prophylaxis with PPI Code status full code Subjective Date/time seen: 10/20/22 08:41 Interval history: 87yo male with CAD admitted after near syncope during a stress test. Patient developed frustration and anxiety trying to urinate. Clarks palpitations noted the heart rate was elevated. He did have some chest pressure that radiated to both arms. Symptoms lasted about 15 minutes before easing off. No other issues overnight. No SOB or diaphoresis. Exam Narrative: Gen - NARD Chest - CTA bialterally, nml RR CV - RRR S1/S2; Tele showing occasional bradycardia. One episode of brief atrial tachycardia Abd - soft, NT/ND Ext - no edema. 2+ Rt radial pulse. nml sensation to the right hand Skin - warm and dry Psych - nml mood and affect Objective Data Vital Signs Vital Signs: Vital Signs - 24 hr 10/19/22 10:45 10/19/22 11:00 10/19/22 11:15 Temperature 98 F Pulse Rate 52 L 48 L 47 L Respiratory Rate 16 19 24 H Blood Pressure 175/77 H 161/74 H 149/78 H Pulse Oximetry 99 98 98 Oxygen Delivery Room Air Room Air Room Air 10/19/22 11:30 10/19/22 11:45 10/19/22 12:15 Temperature Pulse Rate 49 L 48 L 48 L Respiratory Rate 16 17 22 H Blood Pressure 169/66 H 172/83 H 155/92 H Pul
[2022-10-20] MEDS: OPTI-GEN TAB 1 TABLET PO (08:58)
[2022-10-20] MEDS: PANTOPRAZOLE SODIUM IV 40 MG VIAL IV PUSH (08:58)
[2022-10-20] MEDS: ASPIRIN 81 MG ENTERIC TABLET PO (08:58)
[2022-10-20] MEDS: lisinopriL 10 MG TABLET PO (10:45)
--- NOTE | 2022-10-20 11:00 | PM.PNCARD ---
Progress Note: A&P Assessment and Plan (1) Acute non-ST elevation myocardial infarction (NSTEMI): Code(s): I21.4 - Non-ST elevation (NSTEMI) myocardial infarction Status: Acute (2) Syncope: Code(s): R55 - Syncope and collapse Status: Acute (3) SARS-CoV-2 positive: Code(s): U07.1 - COVID-19 Status: Acute (4) Elevated troponin: Code(s): R77.8 - Other specified abnormalities of plasma proteins Status: Acute (5) Abnormal stress electrocardiogram test: Code(s): R94.39 - Abnormal result of other cardiovascular function study Status: Acute (6) Coronary artery disease: Code(s): I25.10 - Atherosclerotic heart disease of [place] coronary artery without angina pectoris Status: Acute (7) Type 2 diabetes mellitus: Code(s): E11.9 - Type 2 diabetes mellitus without complications Status: Acute Plan Cardiac cath 10/19 showing MVCAD involving proximal-mid LAD, proximal-OM2-, mid RCA, mid RPLV. Patient is currently awaiting transfer to [facility] for CT surgery evaluation and Heart Team discussion. Continue ASA 81mg once daily, high-intensity statin. HR is in the 50s-60s. Will hold off on beta-linda given his baseline bradycardia. Patient hypertensive yesterday and this morning - will start Lisinopril. Continue with Heparin drip. Subjective Date/time seen: 10/20/22 11:00 Interval history: Reason for visit: Chest pain, CAD, abnormal stress test, syncope HPI: This is an 87-year-old male with a history of CAD s/p prior Diagonal stent, mild aortic stenosis, recent COVID infection, hyperlipidemia who was recently seen in our office for chest pain. Patient was scheduled for an echocardiogram and stress test 10/18. Echocardiogram was done which showed LVEF 60%, no focal wall motion abnormalities, moderate MR, mild-moderate , mild pulmonic regurgitation. During the stress MPI, patient was on the treadmill and had complained of chest pain. Noted to have ST depressions on the ECG. He was given some NTG. After completing the stress test, patient was getting dressed and then he was found sitting in bed slumped against the wall. Patient was reportedly unresponsive at first. BP at that time 130/80. While awaiting transfer to the ER, patient reportedly had a syncopal episode. Patient was noted to be diaphoretic, Patient became responsive. ER evaluation showed positive COVID test. Troponins mildly elevated at 0.086 --> 0.095 --> 0.075. EKG on admission showed sinus bradycardia, T-wave abnormality in the anterolateral leads. Patient denies any chest pain this morning. No shortness of breath, lightheadedness/dizziness. Patient has been NPO since midnight. Took his last Xarelto dose on Tuesday. He is on Xarelto for recurrent DVTs. Date of service 10/20: Cardiac cath yesterday showed MVCAD involving LAD, OM-2, RCA, RPLV. Patient is currently awaiting transfer to [facility] for CT surgery evaluation and Heart Team discussion. Patient reports feeling well this morning. He states that he had to urinate in the middle of the night, and in the excitement of it all, he had some chest pain that went to his shoulder. Resolved after 30 minutes or so. No chest pain this morning. On Heparin drip without bleeding/bruising issues. Radial artery access site looks good. Review of Systems Review of Systems: 8-point ROS obtained. Negative, unless stated in HPI. Exam Const: General: comfortable and no acute distress HENMT: Mouth: Yes moist mucous membranes Eyes: General: appearance normal, both eyes and all related structures Sclera: sclerae normal Neck: Neck: supple and no JVD Resp: Effort & Inspection: normal respiratory effort Auscultation: clear to auscultation bilaterally Cardio: Rate: regular rate Rhythm: regular rhythm Heart sounds: Murmur heart sound present systolic GI: GI Palp: Yes Soft to palpation and No Tenderness to palpation present (GI) Skin: General ski
[2022-10-20 13:30] LABS: Partial Thromboplastin Time 109.7 SECONDS (22.3-36.8)
[2022-10-20 20:25] LABS: Partial Thromboplastin Time 90.2 SECONDS (22.3-36.8)
[2022-10-20] MEDS: ATORVASTATIN 40 MG TABLET 80 MG PO (21:04)
[2022-10-21] VITALS (14 sets, daily range): BP systolic 121–165; BP diastolic 58–74; PULSE 49–77; RESP 16–20; TEMP 36.1–36.8; O2SAT 97–99
[2022-10-21] MEDS: HEPARIN SOD/D5W 100 UNITS/ML 25,000 UNITS/250 ML BAG 9 UNITS IV CONT (01:13)
[2022-10-21 03:04] LABS: Basophils Absolute Auto 0.1 K/mm3 (0.0-0.1); Basophils Percent Auto 0.7 % (0.2-1.2); Eosinophils Absolute Auto 0.2 K/mm3 (0-0.3); Eosinophils Percent Auto 2.2 % (0-4.4); Hematocrit 38.3 % (42.0-52.0); Hemoglobin 12.8 g/dL (14.0-18.0); Immature Granulocyte Absolute 0.03 K/mm3 (0.00-0.031); Immature Granulocyte Percent A 0.3 % (0-0.5); Lymphocytes Absolute Auto 1.23 K/mm3 (0.9-3.2); Lymphocytes Percent Auto 13.2 % (18.3-44.2); Mean Corpuscular HGB Conc 33.4 g/dl (32-36); Mean Corpuscular Hemoglobin 32.2 pg (26-34); Mean Corpuscular Volume 96.2 fl (80-100); Mean Platelet Volume 10.3 fl (7.4-10.4); Monocytes Absolute Auto 0.7 K/mm3 (0.1-0.6); Monocytes Percent Auto 7.3 % (2.6-8.5); Neutrophils Absolute Auto 7.1 K/mm3 (1.3-6.7); Neutrophils Percent Auto 76.3 % (45.5-73.1); Platelet Count Result 200 k/mm3 (150-375); Red Blood Count 3.98 M/mm3 (4.6-6.20); Red Cell Distribution Width 14.4 % (11.5-14.5); White Blood Count 9.4 K/mm3 (4.5-10.0)
[2022-10-21 03:14] LABS: Alanine Aminotransferase 18 U/L (6-50); Albumin Level 3.4 g/dL (3.5-5.1); Alkaline Phosphatase 105 U/L (38-126); Anion Gap 4 mmol/L (8-16); Aspartate Amino Transferase 22 U/L (17-59); Bilirubin,Total 0.5 mg/dL (0.2-1.3); Blood Urea Nitrogen 18 mg/dL (9-20); Calcium 8.3 mg/dL (8.4-10.2); Carbon Dioxide 26 mmol/L (22-30); Chloride 107 mmol/L (98-107); Estimated CRCL calculation 55 ml/min; Estimated Glomerular Filt Rate > 60; Glucose 93 mg/dL (65-110); Magnesium 1.8 mg/dL (1.6-2.3); Potassium 3.8 mmol/L (3.4-5.0); Sodium 137 mmol/L (137-145)
[2022-10-21 03:17] LABS: Partial Thromboplastin Time 93.9 SECONDS (22.3-36.8)
[2022-10-21] MEDS: lisinopriL 10 MG TABLET PO (08:59)
[2022-10-21] MEDS: PANTOPRAZOLE SODIUM IV 40 MG VIAL IV PUSH (08:59)
[2022-10-21] MEDS: ASPIRIN 81 MG ENTERIC TABLET PO (08:59)
[2022-10-21] MEDS: OPTI-GEN TAB 1 TABLET PO (08:59)
[2022-10-21] MEDS: guaiFENesin 12 HR 600 MG TABCR PO ×2 (10:44→21:19)
[2022-10-21] MEDS: ACETAMINOPHEN 325 MG TABLET 650 MG PO ×2 (10:44→21:19)
--- NOTE | 2022-10-21 10:45 | PM.PNCARD ---
Progress Note: A&P Assessment and Plan (1) Acute non-ST elevation myocardial infarction (NSTEMI): Code(s): I21.4 - Non-ST elevation (NSTEMI) myocardial infarction Status: Acute (2) Syncope: Code(s): R55 - Syncope and collapse Status: Acute (3) SARS-CoV-2 positive: Code(s): U07.1 - COVID-19 Status: Acute (4) Elevated troponin: Code(s): R77.8 - Other specified abnormalities of plasma proteins Status: Acute (5) Abnormal stress electrocardiogram test: Code(s): R94.39 - Abnormal result of other cardiovascular function study Status: Acute (6) Coronary artery disease: Code(s): I25.10 - Atherosclerotic heart disease of [place] coronary artery without angina pectoris Status: Acute (7) Type 2 diabetes mellitus: Code(s): E11.9 - Type 2 diabetes mellitus without complications Status: Acute Plan Cardiac cath 10/19 showing MVCAD involving proximal-mid LAD, proximal OM2, mid RCA, mid RPLV. Patient is currently awaiting transfer to [facility] for CT surgery evaluation and Heart Team discussion. Continue ASA 81mg once daily, high-intensity statin. HR is in the 50s-60s. Will hold off on beta-linda given his baseline bradycardia. BP improved with Lisinopril - continue for now. Continue with Heparin drip. Subjective Date/time seen: 10/21/22 10:45 Interval history: Reason for visit: Chest pain, CAD, abnormal stress test, syncope HPI: This is an 87-year-old male with a history of CAD s/p prior Diagonal stent, mild aortic stenosis, recent COVID infection, hyperlipidemia who was recently seen in our office for chest pain. Patient was scheduled for an echocardiogram and stress test 10/18. Echocardiogram was done which showed LVEF 60%, no focal wall motion abnormalities, moderate MR, mild-moderate , mild pulmonic regurgitation. During the stress MPI, patient was on the treadmill and had complained of chest pain. Noted to have ST depressions on the ECG. He was given some NTG. After completing the stress test, patient was getting dressed and then he was found sitting in bed slumped against the wall. Patient was reportedly unresponsive at first. BP at that time 130/80. While awaiting transfer to the ER, patient reportedly had a syncopal episode. Patient was noted to be diaphoretic, Patient became responsive. ER evaluation showed positive COVID test. Troponins mildly elevated at 0.086 --> 0.095 --> 0.075. EKG on admission showed sinus bradycardia, T-wave abnormality in the anterolateral leads. Patient denies any chest pain this morning. No shortness of breath, lightheadedness/dizziness. Patient has been NPO since midnight. Took his last Xarelto dose on Tuesday. He is on Xarelto for recurrent DVTs. Date of service 10/20: Cardiac cath yesterday showed MVCAD involving LAD, OM-2, RCA, RPLV. Patient is currently awaiting transfer to [facility] for CT surgery evaluation and Heart Team discussion. Patient reports feeling well this morning. He states that he had to urinate in the middle of the night, and in the excitement of it all, he had some chest pain that went to his shoulder. Resolved after 30 minutes or so. No chest pain this morning. On Heparin drip without bleeding/bruising issues. Radial artery access site looks good. Date of service 10/21: Feeling well this morning. No chest pain overnight. Had some left knee pain. Didn't sleep too well last night. Review of Systems Review of Systems: 8-point ROS obtained. Negative, unless stated in HPI. Exam Const: General: comfortable and no acute distress HENMT: Mouth: Yes moist mucous membranes Eyes: General: appearance normal, both eyes and all related structures Sclera: sclerae normal Neck: Neck: supple and no JVD Resp: Effort & Inspection: normal respiratory effort Auscultation: clear to auscultation bilaterally Cardio: Rate: regular rate Rhythm: regular rhythm Heart sounds: Murmur heart sound present
--- NOTE | 2022-10-21 10:54 | PM.IMPN ---
Progress Note: A&P Assessment and Plan (1) Coronary artery disease: Code(s): I25.10 - Atherosclerotic heart disease of [place] coronary artery without angina pectoris Status: Acute Assessment and Plan: Patient underwent left heart catheterization on 10/19/2022 showing multivessel coronary disease. Plan is for patient to be transferred to [facility] for CT surgery evaluation for possible surgical intervention. Continue aspirin and Lipitor. P noted but no hx of HTN. Medications adjusted per leg man. Discussed with leg man and plan reviewed. DOubt he has hemarthrosis and more likely tendonitis to the left knee. Continue heparin drip. Tylenol for pain. Ice. (2) Acute non-ST elevation myocardial infarction (NSTEMI): Code(s): I21.4 - Non-ST elevation (NSTEMI) myocardial infarction Status: Acute Assessment and Plan: Troponin elevated but flat. As above. Continue aggressive medical management until such time as he is able to be transferred to a tertiary care center for further evaluation for his multivessel coronary disease. (3) Near syncope: Code(s): R55 - Syncope and collapse Status: Acute Assessment and Plan: Suspect this is secondary to exertion too soon after being given nitro and significant multiple vessel CAD. As above (4) Bradycardia: Code(s): R00.1 - Bradycardia, unspecified Status: Acute Assessment and Plan: Mild bradycardia noted at night. TSH normal. Not on beta blockade for this reason. ApneaLink positive for obstructive sleep apnea. Will need official sleep study to confirm. (5) SARS-CoV-2 positive: Code(s): U07.1 - COVID-19 Status: Acute Assessment and Plan: Wilfredo was COVID positive over the holiday season and remains positive here but asymptomatic. CXR reviewed personally and showing clear lung faustin that concurs with the radiologists finding. Still with cough but lungs clear and no O2 requirement. Follow (6) Dyslipidemia: Code(s): E78.5 - Hyperlipidemia, unspecified Status: Acute Assessment and Plan: Lipid panel noted. As above (7) Chronic anticoagulation: Code(s): Z79.01 - intermediate (current) use of anticoagulants Status: Acute Assessment and Plan: Patient was on Xarelto on admission. Related history of VTE. Xarelto on hold. Plan DVT prophylaxis with heparin Code status full code Subjective Date/time seen: 10/21/22 10:54 Interval history: 87yo male with CAD admitted after near syncope during a stress test. Patient slept poorly last night. The ApneaLink was positive but patient states he did not sleep at all last night and doubts these results. He has a cough is productive. Complains of left leg pain this is not uncommon and feels it is related to his right knee impacting his left knee. He denies any chest pain. Exam Narrative: Gen - NARD Chest - CTA bialterally, nml RR CV - RRR S1/S2; Tele showing occasional bradycardia. Abd - soft, NT/ND Ext - no edema. minor bruise to the left lateral knee. peripatellar left knee pain. Nml ROM. no apparent joint effusion Skin - warm and dry Psych - nml mood and affect Objective Data Vital Signs Vital Signs: Vital Signs - 24 hr 10/20/22 12:00 10/20/22 12:00 10/20/22 14:00 Temperature 97.5 F L Pulse Rate 64 63 50 L Respiratory Rate 16 Blood Pressure 130/63 Pulse Oximetry 98 Oxygen Delivery 10/20/22 16:00 10/20/22 16:00 10/20/22 18:00 Temperature 97.6 F Pulse Rate 62 54 L 50 L Respiratory Rate 20 Blood Pressure 124/53 L Pulse Oximetry 100 Oxygen Delivery 10/20/22 20:00 10/20/22 20:00 10/20/22 20:00 Temperature 97.7 F 97.7 F Pulse Rate 54 L 45 L 54 L Respiratory Rate 16 16 Blood Pressure 130/50 L 130/50 L Pulse Oximetry 100 100 Oxygen Delivery 10/20/22 20:00 10/20/22 22:00 10/20/22 23:30 Temperature Pulse Rate
[2022-10-21] MEDS: ATORVASTATIN 40 MG TABLET 80 MG PO (21:18)
[2022-10-22] VITALS (11 sets, daily range): BP systolic 128–148; BP diastolic 59–73; PULSE 48–73; RESP 16–20; TEMP 36.3–36.9; O2SAT 96–100
[2022-10-22] MEDS: HEPARIN SOD/D5W 100 UNITS/ML 25,000 UNITS/250 ML BAG 9 UNITS IV CONT (04:13)
[2022-10-22 05:19] LABS: Partial Thromboplastin Time 69.7 SECONDS (22.3-36.8)
[2022-10-22] MEDS: HEPARIN SODIUM 5,000 UNITS/ML VIAL 3000 UNITS IV PUSH ×2 (05:33→13:34)
[2022-10-22] MEDS: lisinopriL 10 MG TABLET PO (09:32)
[2022-10-22] MEDS: OPTI-GEN TAB 1 TABLET PO (09:32)
[2022-10-22] MEDS: guaiFENesin 12 HR 600 MG TABCR PO (09:32)
[2022-10-22] MEDS: ASPIRIN 81 MG ENTERIC TABLET PO (09:32)
[2022-10-22] MEDS: PANTOPRAZOLE SODIUM IV 40 MG VIAL IV PUSH (09:33)
--- NOTE | 2022-10-22 09:43 | PM.PNCARD ---
Progress Note: A&P Assessment and Plan (1) Acute non-ST elevation myocardial infarction (NSTEMI): Code(s): I21.4 - Non-ST elevation (NSTEMI) myocardial infarction Status: Acute (2) Syncope: Code(s): R55 - Syncope and collapse Status: Acute (3) SARS-CoV-2 positive: Code(s): U07.1 - COVID-19 Status: Acute (4) Elevated troponin: Code(s): R77.8 - Other specified abnormalities of plasma proteins Status: Acute (5) Abnormal stress electrocardiogram test: Code(s): R94.39 - Abnormal result of other cardiovascular function study Status: Acute (6) Coronary artery disease: Code(s): I25.10 - Atherosclerotic heart disease of [place] coronary artery without angina pectoris Status: Acute (7) Type 2 diabetes mellitus: Code(s): E11.9 - Type 2 diabetes mellitus without complications Status: Acute Plan Cardiac cath 10/19 showing MVCAD involving proximal-mid LAD, proximal OM2, mid RCA, mid RPLV. Patient is currently awaiting transfer to [facility] for CT surgery evaluation and Heart Team discussion. Continue ASA 81mg once daily, high-intensity statin. HR is in the 50s-60s. Will hold off on beta-linda given his baseline bradycardia. BP improved with Lisinopril - continue for now. He became hypotensive and pre-syncopal with nitroglycerin administration, would avoid. Encouraged minimal physical exertion. Continue with Heparin drip. Subjective Date/time seen: 10/22/22 09:43 Cardiology follow up for NSTEMI He's feeling well this morning but states that for the past 2 nights when he's gotten up to use his urinal he develops some chest and arm pain. He states on both occurrences it took about 30 minutes for the pain to resolve. Exam Const: General: comfortable and no acute distress HENMT: Mouth: Yes moist mucous membranes Eyes: General: appearance normal, both eyes and all related structures Sclera: sclerae normal Neck: Neck: supple and no JVD Resp: Effort & Inspection: normal respiratory effort Auscultation: clear to auscultation bilaterally Cardio: Rate: regular rate Rhythm: regular rhythm Heart sounds: Murmur heart sound present systolic Skin: General skin exam: normal color Neuro: Speech: normal speech Extrem: General: normal to inspection and no edema Psych: Mental Status: mental status grossly normal Affect: normal affect Objective Data Vital Signs Vital Signs: Vital Signs - 24 hr 10/21/22 10:00 10/21/22 12:00 10/21/22 12:00 Temperature 36.6 C Pulse Rate 62 62 Respiratory Rate 16 Blood Pressure 142/67 H Pulse Oximetry 99 Oxygen Delivery Room Air 10/21/22 12:00 10/21/22 14:00 10/21/22 16:00 Temperature 36.8 C Pulse Rate 70 55 L 77 Respiratory Rate 18 Blood Pressure 143/58 H Pulse Oximetry 99 Oxygen Delivery 10/21/22 16:00 10/21/22 18:00 10/21/22 16:00 Temperature Pulse Rate 50 L 55 L Respiratory Rate Blood Pressure Pulse Oximetry Oxygen Delivery Room Air 10/21/22 20:35 10/21/22 20:00 10/21/22 20:00 Temperature 36.6 C 36.6 C Pulse Rate 66 59 L 66 Respiratory Rate 20 20 Blood Pressure 121/62 121/62 Pulse Oximetry 98 98 Oxygen Delivery 10/21/22 20:00 10/21/22 22:00 10/22/22 00:00 Temperature 36.4 C Pulse Rate 59 L 68 51 L Respiratory Rate 20 20 Blood Pressure 132/65 Pulse Oximetry 98 98 Oxygen Delivery Room Air 10/22/22 00:00 10/22/22 00:00 10/22/22 04:39 Temperature 36.3 C L Pulse Rate 64 64 59 L Respiratory Rate 20 20 Blood Pressure 148/73 H Pulse Oximetry 98 98 Oxygen Delivery Room Air 10/22/22 02:00 10/22/22 04:00 10/22/22 04:00 Temperature Pulse Rate 48 L 71 71 Respiratory Rate 20 Blood Pressure Pulse Oximetry 98 Oxygen Delivery Room Air 10/22/22 06:00 10/22/22 08:00 Temperature 36.3 C L Pulse Rate 64 63 Respiratory Rate 20 Blood Pressure 145/64 H Pulse Oximetry 96 Oxygen
[2022-10-22 12:24] LABS: Partial Thromboplastin Time 61.6 SECONDS (22.3-36.8)
--- NOTE | 2022-10-22 16:19 | PM.IMPN ---
Progress Note: A&P Assessment and Plan (1) Coronary artery disease: Code(s): I25.10 - Atherosclerotic heart disease of [place] coronary artery without angina pectoris Status: Acute Assessment and Plan: Patient underwent left heart catheterization on 10/19/2022 showing multivessel coronary disease. BP better. Plan is for patient to be transferred to [facility] for CT surgery evaluation for possible surgical intervention. Continue aspirin and Lipitor. Continue heparin drip. (2) Acute non-ST elevation myocardial infarction (NSTEMI): Code(s): I21.4 - Non-ST elevation (NSTEMI) myocardial infarction Status: Acute Assessment and Plan: Troponin elevated but flat. As above. Continue aggressive medical management until such time as he is able to be transferred to a tertiary care center for further evaluation for his multivessel coronary disease. (3) Near syncope: Code(s): R55 - Syncope and collapse Status: Acute Assessment and Plan: Suspect this is secondary to exertion too soon after being given nitro and significant multiple vessel CAD. As above (4) Bradycardia: Code(s): R00.1 - Bradycardia, unspecified Status: Acute Assessment and Plan: Mild bradycardia noted at night. TSH normal. Not on beta blockade for this reason. ApneaLink positive for obstructive sleep apnea. Will need official sleep study to confirm. (5) SARS-CoV-2 positive: Code(s): U07.1 - COVID-19 Status: Acute Assessment and Plan: Patient was COVID positive over the holiday season and remains positive here but asymptomatic. CXR reviewed personally and showing clear lung faustin that concurs with the radiologists finding. Still with cough but lungs clear and no O2 requirement. Follow (6) Dyslipidemia: Code(s): E78.5 - Hyperlipidemia, unspecified Status: Acute Assessment and Plan: Lipid panel noted. As above (7) Chronic anticoagulation: Code(s): Z79.01 - termite exterminator (current) use of anticoagulants Status: Acute Assessment and Plan: Patient was on Xarelto on admission. Xarelto on hold. Plan DVT prophylaxis with heparin Code status full code Subjective Date/time seen: 10/22/22 16:19 Interval history: 87yo male with CAD admitted after near syncope during a stress test. Up to the chair today for lunch and for most of the afternoon. No CP. Had a coughing jag overnight with resulting chest pain. Took 45 minutes to 'calm down'. Exam Narrative: Gen - NARD Chest - CTA bilaterally, nml RR CV - RRR S1/S2; Tele showing occasional bradycardia. Abd - soft, NT/ND Ext - no pedal edema Skin - warm and dry Psych - nml mood but anxious affect Objective Data Vital Signs Vital Signs: Vital Signs - 24 hr 10/21/22 18:00 10/21/22 20:35 10/21/22 20:00 Temperature 97.8 F Pulse Rate 55 L 66 59 L Respiratory Rate 20 Blood Pressure 121/62 Pulse Oximetry 98 Oxygen Delivery 10/21/22 20:00 10/21/22 20:00 10/21/22 22:00 Temperature 97.8 F Pulse Rate 66 59 L 68 Respiratory Rate 20 20 Blood Pressure 121/62 Pulse Oximetry 98 98 Oxygen Delivery Room Air 10/22/22 00:00 10/22/22 00:00 10/22/22 00:00 Temperature 97.6 F Pulse Rate 51 L 64 64 Respiratory Rate 20 20 Blood Pressure 132/65 Pulse Oximetry 98 98 Oxygen Delivery Room Air 10/22/22 04:39 10/22/22 02:00 10/22/22 04:00 Temperature 97.4 F L Pulse Rate 59 L 48 L 71 Respiratory Rate 20 Blood Pressure 148/73 H Pulse Oximetry 98 Oxygen Delivery 10/22/22 04:00 10/22/22 06:00 10/22/22 08:00 Temperature 97.3 F L Pulse Rate 71 64 63 Respiratory Rate 20 20 Blood Pressure 145/64 H Pulse Oximetry 98 96 Oxygen Delivery Room Air 10/22/22 12:00 10/22/22 08:00 10/22/22 10:00 Temperature 98.5 F Pulse Rate 70 67 63 Respiratory Rate 20 Blood Pressure 134/59 L Pulse Oximetry 97
--- NOTE | 2022-10-22 19:02 | PM.TDS ---
Transfer Discharge Sum: Prov Provider Date of admission: 10/18/22 13:38 Primary care physician: Rosy Ortiz MD Admitting clinician: Yury Nelson MD Consults: 10/19/22 Consult to Physician Routine Comment: Consulting Provider: Guillermo Owens electrical machinist/MD group to consult: [facility] cardiology Reason for consultation: Elevated troponin Has provider been notified: Yes DS: Admitting Diagnosis Discharge Date 10/22/22 Admitting Diagnosis near syncope DS: Discharge Diagnosis Discharge Diagnosis (1) Coronary artery disease: Code(s): I25.10 - Atherosclerotic heart disease of [place] coronary artery without angina pectoris Status: Acute (2) Acute non-ST elevation myocardial infarction (NSTEMI): Code(s): I21.4 - Non-ST elevation (NSTEMI) myocardial infarction Status: Acute (3) Near syncope: Code(s): R55 - Syncope and collapse Status: Acute (4) Bradycardia: Code(s): R00.1 - Bradycardia, unspecified Status: Acute (5) SARS-CoV-2 positive: Code(s): U07.1 - COVID-19 Status: Acute (6) Dyslipidemia: Code(s): E78.5 - Hyperlipidemia, unspecified Status: Acute (7) Chronic anticoagulation: Code(s): 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 Status: Acute Transfer Discharge Sum: Med Medications Active and Home Medications: Home Medications aspirin 81 mg tablet,delayed release 81 mg PO HS 01/23/20 [History Confirmed 10/18/22] fluticasone propionate 50 mcg/actuation nasal spray,suspension See Rx Instructions intranasal DAILY PRN Allergy Symptoms 01/23/20 [History Confirmed 10/18/22] propylene glycol 0.6 % eye drops (Lubricant Eye (propylene glycol)) 1 drop ophthalmic (eye) DAILY PRN Dry Eye(S) 01/23/20 [History Confirmed 10/18/22] vitamins A,C,J-nigi-ctkjuo 14,320 unit-226 mg-200 unit capsule (PreserVision AREDS) 1 cap PO DAILY 01/23/20 [History Confirmed 10/18/22] rivaroxaban 10 mg tablet (Xarelto) 10 mg PO DAILY 10/18/22 [History Confirmed 10/18/22] simvastatin 20 mg tablet 20 mg PO HS 10/18/22 [History Confirmed 10/18/22] Active Medications Acetaminophen (Acetaminophen 325 Mg Tablet) 650 mg PO Q6H PRN PRN Reason: Mild Pain (1-3) or Fever Last Admin: 10/21/22 21:19 Dose: 650 mg Artificial Tears (Artificial Tears Ophth Soln 15 Ml Bottle) 1 drop EACH EYE DAILY PRN PRN Reason: Dry Eye(s) Aspirin (Aspirin 81 Mg Enteric Tablet) 81 mg PO [facility] Last Admin: 10/22/22 09:32 Dose: 81 mg Atorvastatin Calcium (Atorvastatin 40 Mg Tablet) 80 mg PO [facility] Last Admin: 10/21/22 21:18 Dose: 80 mg Fluticasone Propionate (Fluticasone Propionate 0.05% Na Spr 16 Gm Btl (*Bkc)) 1 - 2 spray NASAL DAILY PRN PRN Reason: Allergy Symptoms Guaifenesin (Guaifenesin 12 Hr 600 Mg Tabcr) 600 mg PO Q12HR [facility] Last Admin: 10/22/22 09:32 Dose: 600 mg Heparin Sodium (Porcine) (Heparin Sodium 5,000 Units/Ml Vial) 4,000 units IV PUSH PRN PRN PRN Reason: aPTT less than 55 seconds Last Admin: 10/19/22 05:08 Dose: 4,000 units Heparin Sodium (Porcine) (Heparin Sodium 5,000 Units/Ml Vial) 3,000 units IV PUSH PRN PRN PRN Reason: aPTT 55 - 70 seconds Last Admin: 10/22/22 13:34 Dose: 3,000 units Heparin Sodium/Dextrose (Heparin Sodium/D5w 100 Units/Ml) 25,000 units in 250 mls @ 11 mls/hr IV CONT .[id number] [facility]; Protocol Last Titration: 10/22/22 13:35 Dose: 1,100 units/hr, 11 mls/hr Lisinopril (Lisinopril 10 Mg Tablet) 10 mg PO DAILY [facility] Last Admin: 10/22/22 09:32 Dose: 10 mg Multivitamins/Minerals (Opti-Gen Tab) 1 tablet PO [facility] Last Admin: 10/22/22 09:32 Dose: 1 tablet Pantoprazole Sodium (Pantoprazole Sodium Iv 40 Mg Vial) 40 mg IV PUSH [facility] Last Admin: 10/22/22 09:33 Dose: 40 mg Transfer Discharge Sum: Hosp Hospital Course Hospital course: Delano Bruno is a 87 year old male with CAD admitted after near syncope during a stress test. Please see H&P for details. Troponin aaron
[2022-10-22 19:59] LABS: Partial Thromboplastin Time 78.7 SECONDS (22.3-36.8)
== END 2022-10-22 19:50 | disposition short-term general hospital (02) | DRG 280 ==
LOC: ANHED 13:00 → ANHIMU 14:10
PROVIDERS: Internal Medicine; Physician Assistant; Admitting Provider Chiropractor; Emergency Provider Emergency Medicine; PCP Internal Medicine; Visit Provider Internal Medicine
PROC: 4A023N7 Measurement of Cardiac Sampling and Pressure, Left Heart, Percutaneous Approach (ICD-10-PCS; CPT 93452; principal; 2022-10-19 09:30)
DX: U07.1 COVID-19; I21.4 Non-ST elevation (NSTEMI) myocardial infarction; I25.119 Atherosclerotic heart disease of native coronary artery with unspecified angina pectoris; E78.5 Hyperlipidemia, unspecified; E11.9 Type 2 diabetes mellitus without complications; E55.9 Vitamin D deficiency, unspecified; G47.33 Obstructive sleep apnea (adult) (pediatric); I10 Essential (primary) hypertension; K21.9 Gastro-esophageal reflux disease without esophagitis; M79.605 Pain in left leg; Z98.49 Cataract extraction status, unspecified eye; Z96.1 Presence of intraocular lens; Z95.5 Presence of coronary angioplasty implant and graft; Z85.46 Personal history of malignant neoplasm of prostate; Z86.711 Personal history of pulmonary embolism; Z90.79 Acquired absence of other genital organ(s); Z96.651 Presence of right artificial knee joint; Z86.718 Personal history of other venous thrombosis and embolism; Z28.21 Immunization not carried out because of patient refusal; Z79.82 Long term (current) use of aspirin; Z79.01 Long term (current) use of anticoagulants
CPT/HCPCS: 36415; 71045; 80048; 80053; 80061; 83036; 83690; 83735; 83880; 84443; 84484; 85025; 85027; 85610; 85730; 87636; 93005; 93458; 94762; 99291; A9270; C1769; C1887; C1894; C9113; J1644; J2250; J3010; J7030; J7040

== ENCOUNTER 2022-10-31 13:34 | Observation (INO) | payer MEDICARE, SELFPAY ==
[2022-10-31] VITALS (7 sets, daily range): BP systolic 150–198; BP diastolic 65–96; PULSE 56–76; RESP 15–18; TEMP 36.1–36.6; O2SAT 92–100; BMI 24.6
--- NOTE | ~2022-10-31 | XR_ITS ---
EXAM: XR thoracic spine 2V DATE: 11/02/2022 16:31 HISTORY: New TSLO brace for T7 fracture . COMPARISON: CT thoracic spine 10/31/2022. FINDINGS: The thoracic spine is mostly obscured in the frontal projection by a strut in the external brace. Vertebral body alignment intact. Stable moderate height loss at T7. Stable mild height loss at T4-T6. Multilevel mild disc space narrowing and marginal osteophytosis. No new acute traumatic malal ignment or fracture since the prior study. Visualized lung parenchyma is clear. IMPRESSION: Stable T7 burst fracture. Reviewed, dictated and finalized at location K. T CUTTER IMPRESSION: Stable T7 burst fracture.
--- NOTE | ~2022-10-31 | US_ITS ---
EXAMINATION: US venous doppler [facility] DATE: 11/01/2022 14:36 INDICATION: Bilateral lower limb edema TECHNIQUE: Gilman scale images without and with compression and Doppler images of the bilateral lower e xtremity veins were obtained. COMPARISON: 05/29/2019 FINDINGS: The right common femoral vein, profunda femoral vein, femoral vein, popliteal vein, peroneal trunk, p osterior tibial veins, and greater saphenous vein are patent. The left common femoral vein, profunda femoral vein, femoral vein, popliteal vein, peroneal trunk, po sterior tibial veins, and greater saphenous vein are patent. IMPRESSION: 1. Patent bilateral lower extremity veins. No evidence of deep venous thrombosis. Reviewed, dictated and finalized at location B. RDS AND INFORMATION MANAGER IMPRESSION: 1. Patent bilateral lower extremity veins. No evidence of deep venous thrombosi s.
--- NOTE | ~2022-10-31 | CT_ITS ---
EXAMINATION: CTA chest PE protocol DATE: 10/31/2022 16:59 INDICATION: Shortness of breath. Back pain. TECHNIQUE: Computed tomography angiography (CTA) of the chest was performed with 100 mL Omnipaque-350 intravenous contrast timed to evaluate the pulmonary arteries. Coronal maximum intensity projection 3D-reconstructions were created by the technologist. Automated exposure control and iterative reconst ruction technique were employed. The dose-length product was 729.30 mGy-cm. COMPARISON: Chest 2 views 10/14/2022 FINDINGS: The lungs demonstrate mild atelectasis. Calcified left lung nodules and calcified left margy r lymph nodes are consistent with old granulomatous disease. No pleural effusion. The heart size is n ormal. No pericardial effusion. There are coronary artery calcifications. There is no pulmonary embol us. There are gallstones in the gallbladder, which is normal in size. There is a 2.1 cm cyst in right kidney. There are old healed bilateral rib fractures. There is a healing fracture of left 11th rib. There is cartilage loss of multiple vertebral bodies. There is a burst fracture of T7. IMPRESSION: 1. No pulmonary embolus. 2. T7 burst fracture, new from 10/14/2022. 3. Healing fracture of left 11th rib. Reviewed, dictated and finalized at location A. BOX OPERATOR
--- NOTE | ~2022-10-31 | CT_ITS ---
EXAMINATION: CT thoracic spine wo con DATE: 10/31/2022 16:59 INDICATION: Upper back pain. TECHNIQUE: Computed tomography (CT) of the thoracic spine was performed without intravenous contrast. Automated exposure control and iterative reconstruction technique were employed. The dose-length pro duct was 729.30 mGy-cm. COMPARISON: Chest 2 views 10/14/2022 FINDINGS: There is kyphosis and 8 degrees levocurvature of thoracic spine. There is mild chronic ante rior wedging of T4-T6 vertebral bodies. There is a burst fracture of T7 with 2/5 loss of height and r etropulsion of bone 3 mm into central spinal canal. Intervertebral disc heights are normal. There is multilevel facet joint osteoarthritis, mild at most levels. There is mild bilateral facet joint osteo arthritis at T12-L1. There is mild central canal stenosis at T7 and T12-L1. IMPRESSION: 1. T7 burst fracture, new from 10/14/2022. 2. Mild thoracic spondylosis. Reviewed, dictated and finalized at location A. TISSUE MASSAGE THERAPIST
--- NOTE | 2022-10-31 15:10 | ECG_ITS ---
Measurements Intervals [place] Rate: 58 P: 72 KS: 171 QRS: 39 QRSD: 93 T: 66 QT: 414 QTc: 407 Interpretive Statements SINUS BRADYCARDIA POSSIBLE LEFT ATRIAL ENLARGEMENT DELAYED PRECORDIAL R/S TRANSITION BORDERLINE T WAVE ABNORMALITY- ANTERIOR LEADS BASELINE ARTIFACT- I, II, III, AVR, AVL, AVF, V1-V6 BORDERLINE ECG COMPARED TO ECG 10/18/2022 12:05:54 T WAVE ABNORMALITY IMPROVED Electronically Signed On 10-31-2022 15:26:49 TRAINING AND DEVELOPMENT SPECIALIST by Kennedy Vincent D.O.
[2022-10-31] MEDS: MORPHINE SULFATE (*CRX) 4 MG/ML INJ IV PUSH ×2 (15:28→18:20)
[2022-10-31 15:34] LABS: Basophils Absolute Auto 0.1 K/mm3 (0.0-0.1); Basophils Percent Auto 0.9 % (0.2-1.2); Eosinophils Absolute Auto 0.2 K/mm3 (0-0.3); Eosinophils Percent Auto 1.9 % (0-4.4); Hematocrit 39.3 % (42.0-52.0); Hemoglobin 13.2 g/dL (14.0-18.0); Immature Granulocyte Absolute 0.02 K/mm3 (0.00-0.031); Immature Granulocyte Percent A 0.2 % (0-0.5); Lymphocytes Absolute Auto 0.69 K/mm3 (0.9-3.2); Lymphocytes Percent Auto 8.6 % (18.3-44.2); Mean Corpuscular HGB Conc 33.6 g/dl (32-36); Mean Corpuscular Hemoglobin 31.5 pg (26-34); Mean Corpuscular Volume 93.8 fl (80-100); Mean Platelet Volume 10.2 fl (7.4-10.4); Monocytes Absolute Auto 0.7 K/mm3 (0.1-0.6); Monocytes Percent Auto 9.1 % (2.6-8.5); Neutrophils Absolute Auto 6.4 K/mm3 (1.3-6.7); Neutrophils Percent Auto 79.3 % (45.5-73.1); Platelet Count Result 292 k/mm3 (150-375); Red Blood Count 4.19 M/mm3 (4.6-6.20); Red Cell Distribution Width 14.5 % (11.5-14.5)
[2022-10-31 15:51] LABS: INR 1.1; Partial Thromboplastin Time 30.4 SECONDS (22.3-36.8); Prothrombin Time 13.6 Seconds (11.1-14.7)
[2022-10-31 16:10] LABS: Alanine Aminotransferase 34 U/L (6-50); Alkaline Phosphatase 127 U/L (38-126); Anion Gap 6 mmol/L (8-16); Aspartate Amino Transferase 25 U/L (17-59); Bilirubin,Total 0.5 mg/dL (0.2-1.3); Blood Urea Nitrogen 19 mg/dL (9-20); Calcium 9.1 mg/dL (8.4-10.2); Carbon Dioxide 27 mmol/L (22-30); Chloride 101 mmol/L (98-107); Estimated CRCL calculation 48 ml/min; Estimated Glomerular Filt Rate > 60; Glucose 103 mg/dL (65-110); Lipase 77 U/L (23-300); Sodium 134 mmol/L (137-145)
[2022-10-31 16:28] LABS: Troponin I 0.061 ng/mL (0.000-0.034)
--- NOTE | 2022-10-31 17:59 | ED.GENADULT ---
HPI - General Adult General Chief complaint: Back Pain/Injury Stated complaint: back pain Time Seen by Provider: 10/31/22 14:59 History of Present Illness HPI narrative: Patient is an 87-year-old male who presents ER with back pain. Patient reports pain began while he was hospitalized at [facility] and has progressed through the course of week while at home. Denies trauma or fall. No lower extremity numbness or weakness. No saddle anesthesia. No difficulty with urination or defecation. Pain is worse with bending and twisting. He has been trying lidocaine patches and has also tried muscle laxer as prescribed by his PCP. Has some pain with deep breath and feels short of breath. No hemoptysis. He has right-sided leg swelling that he reports is chronic since having knee replacement. He is on Brilinta. Related Data Home Medications Medication Instructions Recorded Confirmed aspirin 81 mg tablet,delayed 81 mg PO HS 01/23/20 10/29/22 release fluticasone propionate 50 See Rx Instructions intranasal 01/23/20 10/29/22 mcg/actuation nasal DAILY PRN Allergy Symptoms spray,suspension propylene glycol 0.6 % eye drops 1 drop ophthalmic (eye) DAILY PRN 01/23/20 10/29/22 (Lubricant Eye (propylene glycol)) Dry Eye(S) vitamins A,C,H-eyyl-qodfqi 14,320 1 cap PO DAILY 01/23/20 10/29/22 unit-226 mg-200 unit capsule (PreserVision AREDS) simvastatin 20 mg tablet 20 mg PO HS 10/18/22 10/29/22 benzonatate 200 mg capsule 200 mg PO TID PRN cough 10/29/22 10/29/22 loratadine 10 mg tablet (Allergy 10 mg PO DAILY 10/29/22 10/29/22 Relief (loratadine)) nitroglycerin 0.4 mg sublingual 0.4 mg sublingual Q5M PRN 10/29/22 10/29/22 tablet (Nitrostat) pantoprazole 40 mg tablet,delayed 40 mg PO QAM 10/29/22 10/29/22 release ticagrelor 90 mg tablet (Brilinta) 90 mg PO Q12H 10/29/22 10/29/22 Allergies Allergy/AdvReac Type Severity Reaction Status Date / Time No Known Allergies Allergy Verified 10/29/22 10:45 Review of Systems Review of Systems: All systems reviewed & are unremarkable except as noted in HPI and below Constitutional: Constitutional: Denies chills, Reports fatigue and Denies fever(s) Cardiovascular: Cardiovascular: Denies chest pain, Denies rapid heart rate and Denies radiating jaw, neck or arm pain Respiratory: Respiratory: Denies cough and Denies dyspnea Gastrointestinal: Gastrointestinal: Denies abdominal pain, Denies nausea and Denies vomiting Musculoskeletal: Musculoskeletal: Reports back pain, Denies arthralgias and Denies joint swelling Neurologic: Denies syncope, Denies headache(s), Denies focal weakness and Denies numbness PMFSH Past Medical History Medical History Acute embolism and thrombosis of other specified deep vein of right lower extremity Chronic anticoagulation Chronic pain of right knee Coronary artery disease Stent to diagonal in March 2013. Diverticulosis Dyslipidemia Gastroesophageal reflux disease Hypertension Kidney stones Mixed incontinence urge and stress Prostate cancer (2002) Pulmonary embolism (2002) Following prostatectomy. Type 2 diabetes mellitus Vitamin D deficiency Surgical History Surgical History History of arthroscopy of both knees History of bilateral inguinal hernia repair History of cardiac catheterization March 2013: Stent to diagonal 1. November 2014: No significant obstructive lesions. Stent to D1 ostium widely patent. 40 to 50% OM and 40% distal RCA (no change consistent with 2012). History of cataract extraction with lens replacement History of colonoscopy with polypectomy History of coronary artery stent placement Stent to diagonal branch in March 2013. History of esophagogastroduodenoscopy (09/2022) Schatzki's ring. History of prostatectomy (2002) History of repair of right rotator cuff (07/2015) History of right knee joint replacement History of tons
[2022-10-31 19:37] LABS: Influenza A QL RT-PCR Negative (Negative); Influenza B QL RT-PCR Negative (Negative); RSV RNA, RT-PCR Negative (Negative); SARS-CoV-2 RNA PCR Negative
--- NOTE | 2022-10-31 22:06 | ADMGEN ---
This patient, Delano Bruno, was admitted to IMU Room 206-02. Patient/family oriented to hospital policies and general routines including ID bracelet, bed and alarms, visiting hours, pain management, procedures, bathroom and other care routines, personal items, smoking policy, room service/diet, and visiting hours. Information on how to activate the Rapid Response Team has been discussed. Patient/Family are encouraged to report perceived risks to care and to ask questions if they do not understand what they are told or what they should do.
--- NOTE | 2022-10-31 23:51 | PM.IMHP ---
H&P: HPI History of Present Illness Date/Time: 10/31/22 18:30 Chief Complaint: Back pain. Narrative: This is a pleasant 87-year-old male with coronary artery disease, dyslipidemia, and history of DVT on chronic anticoagulation who presented to the emergency department via EMS from home for evaluation of back pain. Patient provides the following history. He is known to myself and the hospitalist service from a recent admission on 10/18/2022 with an acute non ST-elevation myocardial infarction after having presented to the ER for evaluation of a near syncopal episode following a stress test which demonstrated EKG changes. cardiac catheterization showed multivessel coronary disease and he was transferred to [facility] for possible surgical intervention. He had a cardiac catheterization done on Tuesday and reports having 2 stents placed with staged intervention scheduled for the next coming weeks. The following day he had pain in the midback which he attributed to the bed and not certain he mentioned it to anybody. He was discharged home that evening and since that time he has continued to have constant, pretty severe pain in the back. He is unable to further qualify the pain. It does not necessarily radiate. It is worse with movement and palpation and somewhat improved when hunched forward. He saw his primary doctor on Tuesday and was prescribed muscle relaxers which have not helped. He has also been taking acetaminophen and using Salonpas patches without much benefit. He does not recall injuring the area however with further questioning he does admit that when he had his near syncopal episode a couple of weeks ago that he stumbled into a wall at that time though he has not had any discomfort prior to Tuesday. He denies chest pain, pleuritic pain, shortness a breath, extremity weakness, and paresthesias. Given his recent coronary intervention a CTA of the chest was ordered. No pulmonary embolism was noted however he was found to have a burst fracture at T7. Dedicated thoracic CT showed to/5 loss of height and retropulsion of bone 3 mm into the central spinal canal. He is being admitted in this setting for pain control and neurosurgery consultation. Of note his troponin was mildly elevated though with further questioning he has not had any chest pain or other symptoms to suggest acute coronary syndrome. Review of Systems Review of Systems: Twelve systems were reviewed and are negative except for as per HPI. [facility] Past Medical History Medical History Acute embolism and thrombosis of other specified deep vein of right lower extremity Chronic anticoagulation Chronic pain of right knee Coronary artery disease Stent to diagonal in March 2013. Diverticulosis Dyslipidemia Gastroesophageal reflux disease Hypertension Kidney stones Mixed incontinence urge and stress Prostate cancer (2002) Pulmonary embolism (2002) Following prostatectomy. Type 2 diabetes mellitus Vitamin D deficiency Surgical History Surgical History History of arthroscopy of both knees History of bilateral inguinal hernia repair History of cardiac catheterization March 2013: Stent to diagonal 1. November 2014: No significant obstructive lesions. Stent to D1 ostium widely patent. 40 to 50% OM and 40% distal RCA (no change consistent with 2013). History of cataract extraction with lens replacement History of colonoscopy with polypectomy History of coronary artery stent placement Stent to diagonal branch in March 2013. History of esophagogastroduodenoscopy (09/2022) Schatzki's ring. History of prostatectomy (2002) History of repair of right rotator cuff (07/2015) History of right knee joint replacement History of tonsillectomy and adenoidectomy History of ventral hernia repair Family History Family History (Reviewed 10/31/22 @ 23:59 by Juan Jose Casey
[2022-11-01] VITALS (10 sets, daily range): BP systolic 129–174; BP diastolic 50–72; PULSE 54–70; RESP 15–21; TEMP 36.5–37.3; O2SAT 95–100
[2022-11-01] MEDS: TICAGRELOR 90 MG TABLET PO ×3 (01:33→20:54)
[2022-11-01] MEDS: SIMVASTATIN 20 MG TABLET PO ×2 (01:33→20:54)
[2022-11-01] MEDS: ASPIRIN 81 MG ENTERIC TABLET PO ×2 (01:37→20:54)
[2022-11-01] MEDS: MORPHINE SULFATE (*CRX) 4 MG/ML INJ 2 MG IV PUSH (03:10)
[2022-11-01] MEDS: LORATADINE 10 MG TABLET PO (08:25)
[2022-11-01] MEDS: OPTI-GEN TAB 1 TABLET PO (08:25)
[2022-11-01] MEDS: PSYLLIUM POWDER PACKET 1 PACKET BY MOUTH (08:26)
[2022-11-01] MEDS: PANTOPRAZOLE 40 MG TABLET PO (08:26)
--- NOTE | 2022-11-01 10:30 | PM.CNCAR ---
Assessment and Plan Assessment and plan (1) Elevated troponin: Code(s): R77.8 - Other specified abnormalities of plasma proteins Status: Acute Assessment and Plan: One troponin level was sampled in the setting of severe back pain because of a T7 compression fracture. Troponin level was mildly elevated. Patient is denying any chest pain or ischemic symptoms whatsoever. Unclear why a troponin level was drawn. His EKG taken in the emergency department did not show any ischemic changes. No further cardiac workup is recommended at this time. Cardiology will sign off. Please not hesitate to contact us with any other questions. (2) Coronary artery disease: Code(s): I25.10 - Atherosclerotic heart disease of [place] coronary artery without angina pectoris Status: Acute Assessment and Plan: he does have coronary artery disease with recent PCI to the proximal LAD and mid PDA. He has a stage procedure scheduled next month. His coronary artery disease is stable. Continue aspirin, Brilinta, statin. (3) Stable burst fracture of T7 vertebra: Code(s): S22.061A - Stable burst fracture of T7-T8 vertebra, initial encounter for closed fracture Status: Acute Assessment and Plan: Neurosurgery is following. Pain management. TLSO brace. History of Present Illness History of Present Illness Consult date/time: 11/01/22 10:30 Reason For Visit: T-7 Burst Fracture,Elevated Troponin Narrative: Mr. Bruno is an 87-year-old male with a past medical history significant for CAD, hyperlipidemia, mild aortic stenosis, and osteoarthritis. This is a patient who recently underwent a treadmill stress test in our office and had a syncopal episode following this test and was therefore brought to [facility] Emergency Department by EMS. He was found to have multi-vessel coronary artery disease on cardiac catheterization performed here by Dr. Owens and he was sent to [facility] for consideration for coronary artery bypass grafting verses high risk PCI. Ultimately, patient underwent PCI with Dr. Kohler with stenting to the proximal LAD and mid PDA. He has residual disease to the right coronary artery and left circumflex artery for which a staged intervention is scheduled to take place in about 1 month. He presents to the hospital now with a chief complaint of back pain. He began having pain the day after his PCI a couple of weeks ago. The pain was diagnosed as a muscular problem and he was sent home with tylenol and topical pain cream. The pain worsened and was so severe he was unable to sleep so he came to the ED. He has been diagnosed with a T7 compression fracture and is being treated with analgesics and will be receiving a TLSO brace. Cardiology has been asked to see him because of an elevated troponin level. He denies having any chest pain at any time following his recent PCI. His only complaint is the back pain. Review of Systems Constitutional: Constitutional: Denies chills, Denies fever(s), Denies headache(s) and Denies malaise Eyes: Eyes: Denies change in vision ENT: Reports Normal hearing present, Denies dizziness, Denies headache(s) and Denies hearing loss Cardiovascular: Cardiovascular: Denies chest pain, Denies chest pain at rest, Denies chest pain with activity, Denies syncope, Denies leg edema, Denies palpitations, Denies dyspnea and Denies dyspnea on exertion Respiratory: Respiratory: Denies cough, Denies dyspnea, Denies dyspnea on exertion and Denies wheezing Gastrointestinal: Gastrointestinal: Denies abdominal pain, Denies constipation and Denies diarrhea Genitourinary: Genitourinary: Denies hematuria and Denies dysuria Musculoskeletal: Musculoskeletal: Reports back pain, Denies myalgias, Denies arthralgias and Denies muscle cramps Integumentary/Breasts: Skin/Breast: Denies wounds Neurologic: Reports Normal hearing present, Denies confusion, Denies dizziness, Denies syncope an
--- NOTE | 2022-11-01 11:14 | WPDNEUROSGCN ---
Assessment and Plan Assessment and plan (1) Stable burst fracture of T7 vertebra: Code(s): S22.061A - Stable burst fracture of T7-T8 vertebra, initial encounter for closed fracture Status: Acute Plan Mr. Bruno is an 87-year-old male with history of CAD s/p 2 recent cardiac stents on aspirin/Brilinta who was found to have a T7 compression fracture on workup for progressive back pain since a rough hospital bed transfer last week. He does not have any radicular symptoms or signs/symptoms of myelopathy. CT thoracic spine shows the T7 compression fracture with 33% loss of height and no significant retropulsion. I recommend treating him with a TLSO brace for stabilization of the fracture. He does not need to wear this in bed but should wear it when out of bed and ambulatory. He should get upright AP/lateral thoracic xrays once the brace is fitted. I recommend PT/OT evaluations once he is fitted with the brace. I will plan to see him back in 6 weeks in clinic with xrays at that time and will arrange for follow up. In the interim, I recommend no lifting more than 10lbs and avoiding twisting/bending exercises. He may still have the other cardiac stents placed next month as scheduled. Review of Systems Review of Systems: All systems reviewed & are unremarkable except as noted in HPI and below (HPI) [facility] Past Medical History Medical History Acute embolism and thrombosis of other specified deep vein of right lower extremity Chronic anticoagulation Chronic pain of right knee Coronary artery disease Stent to diagonal in March 2013. Diverticulosis Dyslipidemia Gastroesophageal reflux disease Hypertension Kidney stones Mixed incontinence urge and stress Prostate cancer (2002) Pulmonary embolism (2002) Following prostatectomy. Type 2 diabetes mellitus Vitamin D deficiency Surgical History Surgical History History of arthroscopy of both knees History of bilateral inguinal hernia repair History of cardiac catheterization March 2013: Stent to diagonal 1. November 2014: No significant obstructive lesions. Stent to D1 ostium widely patent. 40 to 50% OM and 40% distal RCA (no change consistent with 2013). History of cataract extraction with lens replacement History of colonoscopy with polypectomy History of coronary artery stent placement Stent to diagonal branch in March 2013. History of esophagogastroduodenoscopy (09/2022) Schatzki's ring. History of prostatectomy (2002) History of repair of right rotator cuff (07/2015) History of right knee joint replacement History of tonsillectomy and adenoidectomy History of ventral hernia repair Family History Family History Father Malignant neoplasm of prostate Patient's father is Mother Family history of heart disease in male family member before age 55 Family history of cardiovascular disease Other Family history of arthritis Family history of malignant neoplasm Hypertension Social History Social History Social History: Surrogate medical decision maker: Luci Bruno (spouse) or Rin Cooper (daughter). Code status: Full code. Smoking status: Never smoker Second hand tobacco smoke exposure: No Alcohol intake: never Substance use: never Substance use type: does not use Lack of Transportation: No Lack of Food: Never True Current Housing: I Have Housing Concerned About Future Housing: No Difficulty Paying Gas/Electric Bills: No Difficulty Paying for Meds: No Currently Unemployed: No Education: Master's Degree or Higher Difficulty w/ Childcare or Family Care: No Living arrangements: with family Additional living arrangements comments: Lives with spouse in [place]. Additional occupation/education comment
--- NOTE | 2022-11-01 12:15 | PC.NURSE ---
At 1147 on 11/01/2022, Patient found to be flushed, clutching his left chest and moaning. Complained of 10/10 chest pain. No associated nausea or diaphoresis. Nitro administered x3 without relief. Dr. Parrish notified and present at bedside. 4 mg morphine and ativan PO administered per Shivani order. Patient noted to be sleeping between care 20 minutes later. Admits to relief in pain to 7/0. Please see vital signs.
[2022-11-01] MEDS: ACETAMINOPHEN 500 MG TABLET 1000 MG PO ×2 (17:16→23:10)
[2022-11-01] MEDS: polyethylene glycoL 3350 17 GM POWD.PACK PO (17:33)
[2022-11-01] MEDS: oxyCODONE HCL (*CRX) 5 MG TAB IR PO (20:54)
[2022-11-01] MEDS: SENNA/DOCUSATE SODIUM TABLET 1 TAB PO (20:54)
[2022-11-02] MEDS: oxyCODONE HCL (*CRX) 5 MG TAB IR PO ×3 (02:33→14:49)
[2022-11-02 04:25] VITALS: BP 147/81; PULSE 62; RESP 20; TEMP 36.4; O2SAT 96
[2022-11-02 05:07] LABS: Basophils Absolute Auto 0.1 K/mm3 (0.0-0.1); Basophils Percent Auto 1.4 % (0.2-1.2); Eosinophils Absolute Auto 0.2 K/mm3 (0-0.3); Eosinophils Percent Auto 3.8 % (0-4.4); Hematocrit 35.2 % (42.0-52.0); Hemoglobin 11.8 g/dL (14.0-18.0); Immature Granulocyte Absolute 0.03 K/mm3 (0.00-0.031); Immature Granulocyte Percent A 0.5 % (0-0.5); Lymphocytes Absolute Auto 0.92 K/mm3 (0.9-3.2); Lymphocytes Percent Auto 14.7 % (18.3-44.2); Mean Corpuscular HGB Conc 33.5 g/dl (32-36); Mean Corpuscular Hemoglobin 31.1 pg (26-34); Mean Corpuscular Volume 92.9 fl (80-100); Mean Platelet Volume 9.9 fl (7.4-10.4); Monocytes Absolute Auto 0.5 K/mm3 (0.1-0.6); Monocytes Percent Auto 8.6 % (2.6-8.5); Neutrophils Absolute Auto 4.4 K/mm3 (1.3-6.7); Platelet Count Result 266 k/mm3 (150-375); Red Blood Count 3.79 M/mm3 (4.6-6.20); Red Cell Distribution Width 14.2 % (11.5-14.5); White Blood Count 6.3 K/mm3 (4.5-10.0)
[2022-11-02] MEDS: ACETAMINOPHEN 500 MG TABLET 1000 MG PO ×2 (05:10→13:34)
[2022-11-02 05:21] LABS: Alanine Aminotransferase 31 U/L (6-50); Albumin Level 3.2 g/dL (3.5-5.1); Alkaline Phosphatase 98 U/L (38-126); Anion Gap 4 mmol/L (8-16); Aspartate Amino Transferase 40 U/L (17-59); Bilirubin,Total 0.4 mg/dL (0.2-1.3); Blood Urea Nitrogen 18 mg/dL (9-20); Calcium 8.6 mg/dL (8.4-10.2); Carbon Dioxide 28 mmol/L (22-30); Chloride 104 mmol/L (98-107); Estimated CRCL calculation 54 ml/min; Estimated Glomerular Filt Rate > 60; Glucose 90 mg/dL (65-110); Magnesium 1.9 mg/dL (1.6-2.3); Potassium 4.1 mmol/L (3.4-5.0); Sodium 136 mmol/L (137-145)
[2022-11-02 07:51] VITALS: BP 147/59; PULSE 60; RESP 16; TEMP 36.3; O2SAT 100
[2022-11-02] MEDS: polyethylene glycoL 3350 17 GM POWD.PACK PO (08:55)
[2022-11-02] MEDS: PSYLLIUM POWDER PACKET 1 PACKET BY MOUTH (08:55)
[2022-11-02] MEDS: TICAGRELOR 90 MG TABLET PO (08:55)
[2022-11-02] MEDS: LORATADINE 10 MG TABLET PO (08:56)
[2022-11-02] MEDS: OPTI-GEN TAB 1 TABLET PO (08:56)
[2022-11-02] MEDS: PANTOPRAZOLE 40 MG TABLET PO (08:56)
[2022-11-02 11:51] VITALS: BP 117/67; PULSE 80; RESP 18; TEMP 36.7; O2SAT 99
--- NOTE | 2022-11-02 14:20 | PM.DS ---
DS: Admitting Diagnosis Discharge Date 11/02/22 Admitting Diagnosis back pain DS: Discharge Diagnosis Discharge Diagnosis (1) Stable burst fracture of T7 vertebra: Code(s): S22.061A - Stable burst fracture of T7-T8 vertebra, initial encounter for closed fracture Status: Acute (2) Elevated troponin: Code(s): R77.8 - Other specified abnormalities of plasma proteins Status: Acute (3) Acute thoracic back pain: Code(s): M54.6 - Pain in thoracic spine Status: Acute (4) Coronary artery disease: Code(s): I25.10 - Atherosclerotic heart disease of [place] coronary artery without angina pectoris Status: Acute Plan The patient presented to the ED via EMS from home for evaluation of back pain. Labs, imaging, EKG, and reports were personally reviewed. It is unclear how this burst fracture occurred. Analgesics available as needed. Fall precautions will be initiated. May benefit from a TLSO brace. Neurosurgery consulted and their opinion is greatly appreciated. Regarding his troponins, they are mildly elevated and flat and given his lack of symptoms these are not indicative of an acute coronary syndrome. More over he just had intervention, 2 stents were apparently placed this past Tuesday. Continue dual antiplatelet therapy and statin. He is not on a beta-linda due to history of bradycardia. Blood pressures have been running high, most likely due to pain as they improve after receiving analgesics. Continue antihypertensives and monitor closely. Adjustments can/will be made depending on how he trends. The rest of his home medications will be reviewed and resumed as appropriate. DS: Summary Hospital Course Hospital Course: 87-year-old male with history of CAD s/p 2 recent cardiac stents on aspirin/Brilinta who was found to have a T7 compression fracture?on workup for back pain. He does not have any radicular symptoms or signs/symptoms of myelopathy. CT thoracic spine shows the T7 compression fracture with 33% loss of height and no significant retropulsion. Neurosurgery was consulted and recommended treating him with a TLSO brace for stabilization of the fracture. He does not need to wear this in bed but should wear it when out of bed and ambulatory. He should get upright AP/lateral thoracic xrays once the brace is fitted. I recommend PT/OT evaluations once he is fitted with the brace. I will plan to see him back in 6 weeks in clinic with xrays at that time and will arrange for follow up. In the interim, I recommend no lifting more than 10lbs and avoiding twisting/bending exercises. He may still have the other cardiac stents placed next month as scheduled. He was discharged in good condition with close outpatient follow-up by Neurosurgery, Cardiology and his primary care physician. Time Spent with Patient Time attestation: Total time spent providing and/or coordinating discharge services: Exam Narrative: General:?Well-developed male sitting up in bed in no distress. Weight: 73.5 kg. BMI: 24.6. HEENT:?Wearing hearing aids and corrective lenses. PERRL, EOMI. Sclera anicteric.? Oral mucosa moist. Neck:??Supple. Respiratory:?Respirations are nonlabored and he is speaking in full sentences.?Lungs are clear to auscultation bilaterally. Cardiovascular:??Regular rate and rhythm with S1-S2. Gastrointestinal:??Abdomen is soft, nontender, and nondistended with positive bowel sounds. Skin:??Warm and dry.? No rash or lesions on limited exam. Spine: He is tender to palpation in the midthoracic vertebra and somewhat in the paraspinous muscles in the same region. Extremities:? No cyanosis or clubbing. Mild bilateral lower extremity edema, right greater than left which patient states is chronic. Negative Bogdan sign bilaterally. Radial and pedal pulses intact. Neurological:??Alert.? Cranial nerves 2-12 are grossly intact. Equal strength in upper extremities. Psychiatric:??Pleasant and cooperative with normal mood and affect.? D
== END 2022-11-02 19:55 | disposition home or self-care (01) ==
LOC: ANHED 18:40 → ANHIMU 21:55
PROVIDERS: Admitting Provider Chiropractor; Emergency Provider Emergency Medicine; PCP Internal Medicine; Visit Provider Student in an Organized Health Care Education/Training Program
DX: S22.061A Stable burst fracture of T7-T8 vertebra, initial encounter for closed fracture (principal); R77.8 Other specified abnormalities of plasma proteins; M54.6 Pain in thoracic spine; S22.32XD Fracture of one rib, left side, subsequent encounter for fracture with routine healing; I25.10 Atherosclerotic heart disease of native coronary artery without angina pectoris; Z95.5 Presence of coronary angioplasty implant and graft; Z20.822 Contact with and (suspected) exposure to COVID-19; M19.90 Unspecified osteoarthritis, unspecified site; M47.894 Other spondylosis, thoracic region; R00.1 Bradycardia, unspecified; I35.0 Nonrheumatic aortic (valve) stenosis; M79.89 Other specified soft tissue disorders; R06.09 Other forms of dyspnea; M25.561 Pain in right knee; K57.90 Diverticulosis of intestine, part unspecified, without perforation or abscess without bleeding; Z86.718 Personal history of other venous thrombosis and embolism; E78.5 Hyperlipidemia, unspecified; K21.9 Gastro-esophageal reflux disease without esophagitis; I10 Essential (primary) hypertension; E11.9 Type 2 diabetes mellitus without complications; E55.9 Vitamin D deficiency, unspecified; Z79.82 Long term (current) use of aspirin; Z79.51 Long term (current) use of inhaled steroids; Z79.1 Long term (current) use of non-steroidal anti-inflammatories (NSAID); Z79.899 Other long term (current) drug therapy; Z82.49 Family history of ischemic heart disease and other diseases of the circulatory system
CPT/HCPCS: 36415; 71275; 72070; 72128; 80053; 83690; 83735; 84484; 85025; 85610; 85730; 87637; 93005; 93970; 96374; 96376; 97161; 97165; 97530; 97535; 99285; A9270; G0378; J2270; Q9967

== ENCOUNTER 2022-12-03 13:19 | Emergency (ER) | payer MEDICARE, SELFPAY ==
--- NOTE | 2022-12-03 13:23 | ED.CHESTPAIN ---
HPI - Chest Pain General Chief Complaint: Chest Pain Stated Complaint: chest pain Time Seen by Provider: 12/03/22 13:24 Source: patient, RN notes reviewed and old records reviewed Mode of arrival: ambulatory Limitations: no limitations History of Present Illness HPI narrative: 87-year-old male presents to the [facility] for complaints of chest pain, shortness of breath since 4:00 a.m. this morning. Patient states it started as ?rib pain of the left chest this morning and with every breath would hurt some more. States that daughter woke him up due to him ?not breathing. Patient reports losing at least 10 lb in the last 1-2 weeks. Patient has a history of stents placed end of October and end of November. Patient has a history of compression fractures of thoracic spine, currently in a brace Came to the [facility] wanting to make sure that it was not his heart again. Concern for the shortness of breath. Explained to patient and his that we do not have the a capability of doing complete workups. EKG only shows 10 seconds of a heart rhythm, cannot rule out cardiac issues especially with his history of a non-STEMI, multiple stents Onset (ago): hour(s) Timing of current episode: increasing Onset: other (while sleeping) Risk Factors Coronary artery disease risk factors: hypertension Related Data Home Medications Medication Instructions Recorded Confirmed aspirin 81 mg tablet,delayed 81 mg PO HS 01/23/20 10/31/22 release fluticasone propionate 50 See Rx Instructions intranasal 01/23/20 10/31/22 mcg/actuation nasal DAILY PRN Allergy Symptoms spray,suspension vitamins A,C,N-lwmb-[id number] 4,296 1 cap PO DAILY 01/23/20 10/31/22 mcg-226 mg-90 mg capsule (PreserVision AREDS) benzonatate 200 mg capsule 20 mg PO TID PRN cough 10/29/22 10/31/22 loratadine 10 mg tablet (Allergy 10 mg PO DAILY 10/29/22 10/31/22 Relief (loratadine)) nitroglycerin 0.4 mg sublingual 0.4 mg sublingual Q5M PRN Chest 10/29/22 10/31/22 tablet (Nitrostat) Pain pantoprazole 40 mg tablet,delayed 40 mg PO QAM 10/29/22 10/31/22 release ticagrelor 90 mg tablet (Brilinta) 90 mg PO Q12H 10/29/22 10/31/22 Fiber (psyllium husk) 4 cap BYMOUTH DAILY 10/31/22 10/31/22 Allergies Allergy/AdvReac Type Severity Reaction Status Date / Time No Known Allergies Allergy Verified 12/03/22 13:33 Review of Systems Review of Systems: All systems reviewed & are unremarkable except as noted in HPI and below Constitutional: Constitutional: Reports no additional constitutional complaints Eyes: Eyes: Reports no additional eye complaints ENT: Reports system reviewed and no additional complaints, except as documented Cardiovascular: Cardiovascular: Reports as per HPI, Reports chest pain, Reports chest pain at rest, Reports chest pain with activity, Reports leg edema (Chronic right leg) and Reports dyspnea Respiratory: Respiratory: Reports as per HPI, Denies chest congestion, Denies cough, Reports pain on inspiration and Reports dyspnea Gastrointestinal: Gastrointestinal: Reports no additional gastrointestinal complaints, Denies abdominal pain, Denies nausea and Denies vomiting Musculoskeletal: Musculoskeletal: Reports no additional musculoskeletal complaints Integumentary/Breasts: Skin/Breast: Reports system reviewed and no additional complaints, except as docu Neurologic: Reports system reviewed and no additional complaints, except as documented Psychiatric: Psychiatric: Reports no additional psychiatric complaints Allergic/Immunologic: Allergic/Immunologic: Reports no additional allergic/immunologic complaints [facility] Past Medical History Medical History Acute embolism and thrombosis of other specified deep vein of right lower extremity Chronic anticoagulation Chronic pain of right knee Coronary artery disease Stent to diagonal in March 2013. Diverticulosis Dyslipidemia Gastroesophageal reflux disease
[2022-12-03 13:44] VITALS: BP 189/136; PULSE 79; RESP 22; TEMP 36.6; O2SAT 100
--- NOTE | 2022-12-03 13:58 | ECG_ITS ---
Measurements Intervals [place] Rate: 68 P: 87 MI: 175 QRS: -3 QRSD: 94 T: 33 QT: 376 QTc: 400 Interpretive Statements SINUS RHYTHM NONSPECIFIC T-WAVE ABNORMALITY- INFERIORL GEORGE BASELINE WANDER- V6 BORDERLINE ECG COMPARED TO ECG 10/31/2022 15:24:52 SINUS RHYTHM NOW PRESENT Electronically Signed On 12-03-2022 16:53:54 CARE TEAM COORDINATOR SCHEDULER by Kennedy Vincent D.O.
== END 2022-12-03 13:48 | disposition home or self-care (01) ==
LOC: EXPGOSH 13:24
PROVIDERS: Emergency Provider Nurse Practitioner; PCP Internal Medicine
DX: R07.9 Chest pain, unspecified (principal); R06.00 Dyspnea, unspecified; I25.10 Atherosclerotic heart disease of native coronary artery without angina pectoris; I10 Essential (primary) hypertension; E78.5 Hyperlipidemia, unspecified; E11.9 Type 2 diabetes mellitus without complications; Z86.711 Personal history of pulmonary embolism
CPT/HCPCS: 93005; 99213; G0463

== ENCOUNTER 2022-12-03 14:08 | Observation (INO) | payer MEDICARE, SELFPAY ==
[2022-12-03] VITALS (22 sets, daily range): BP systolic 132–166; BP diastolic 60–98; PULSE 52–80; RESP 11–32; TEMP 36.4–36.6; O2SAT 95–100; BMI 23.8
--- NOTE | ~2022-12-03 | CT_ITS ---
EXAMINATION: CTA chest PE protocol DATE: 12/03/2022 17:31 INDICATION: Left-sided chest pain TECHNIQUE: Computed tomography angiography (CTA) of the chest was performed with 100 mL Omnipaque-350 intravenous contrast timed to evaluate the pulmonary arteries. Coronal maximum intensity projection 3D-reconstructions were created by the technologist. The dose-length product (DLP) was 527.10 mGy-cm. Automated exposure control and iterative reconstruction technique were employed. COMPARISON: 10/31/2022 FINDINGS: The pulmonary arteries are well-opacified. There are subtle filling defects in subsegmental branches of the lower lobes. There are small pleural effusions, left greater than right. The heart s ize is normal. There are no pathologically enlarged thoracic lymph nodes. There is mild dependent ate lectasis. No pneumothorax is identified. Calcified pulmonary nodules and calcified hilar lymph nodes are consistent with old granulomatous disease. A T7 burst fracture is again noted with mild worsening loss of vertebral body height. A healing left 11th rib fracture is again noted. There is a 2.[address] of the right kidney. Calcified coronary artery atherosclerosis is noted. IMPRESSION: 1. Subsegmental pulmonary emboli in the lower lobes. These findings were discussed with Dr. Sen roldan MD in the Emergency Department at 1806 hours on 12/03/2022. 2. Small pleural effusions. 3. T7 burst fracture with slight worsening loss of vertebral body height. Reviewed, dictated and finalized at location F. ANICAL DRAFTER IMPRESSION: 1. Subsegmental pulmonary emboli in the lower lobes. These findings were discus sed with Dr. Sen Everett MD in the Emergency Department at 1806 hours on 12/03/2022. 2. Small pleural effusions. 3. T7 burst fracture with slight worsening loss of vertebral body height.
--- NOTE | ~2022-12-03 | XR_ITS ---
EXAMINATION: XR chest 2V DATE: 12/03/2022 15:19 INDICATION: Left-sided chest pain TECHNIQUE: Frontal and lateral views of the chest are obtained COMPARISON: 10/31/2022 FINDINGS: There there is a small left pleural effusion. There are minimal airspace opacities of the l eft lung base. No pneumothorax is identified. The cardiomediastinal silhouette is normal. A coronary artery stent is noted. There is an unchanged burst fracture of T7. IMPRESSION: 1. Small left pleural effusion with minimal associated left basilar airspace opacities, likely atelec tasis. Reviewed, dictated and finalized at location F. CUTTER IMPRESSION: 1. Small left pleural effusion with minimal associated left basilar airspace op acities, likely atelectasis.
--- NOTE | ~2022-12-03 | US_ITS ---
EXAMINATION: US venous doppler [facility] DATE: 12/04/2022 12:47 INDICATION: Left chest pain. Acute pulmonary emboli. TECHNIQUE: Grayscale ultrasound images without and with compression and Doppler ultrasound images of the bilateral lower extremity veins were obtained. COMPARISON: Ultrasound 11/01/2022 FINDINGS: The visualized portions of right common femoral vein, profunda (deep) femoral vein, femoral vein, pop liteal vein, peroneal veins, posterior tibial veins, and greater saphenous vein outflow are patent. The visualized portions of left common femoral vein, profunda femoral vein, femoral vein, popliteal v ein, peroneal veins, posterior tibial veins, and greater saphenous vein outflow are patent. IMPRESSION: 1. No deep venous thrombosis. Reviewed, dictated and finalized at location A. PAPER INSTALLER
--- NOTE | 2022-12-03 14:16 | ECG_ITS ---
Measurements Intervals [place] Rate: 64 P: 60 RI: 172 QRS: -6 QRSD: 95 T: 28 QT: 368 QTc: 380 Interpretive Statements SINUS RHYTHM POSSIBLE LEFT ATRIAL ENLARGEMENT BORDERLINE R WAVE PROGRESSION, ANTERIOR LEADS BORDERLINE T WAVE ABNORMALITY- INFERIOR LEADS BASELINE ARTIFACT- II, III BORDERLINE ECG COMPARED TO ECG 12/03/2022 13:39:20 NO SIGNIFICANT CHANGES Electronically Signed On 12-03-2022 16:54:29 BRAND LEAD by Kennedy Vincent D.O.
[2022-12-03 14:39] LABS: Basophils Absolute Auto 0.1 K/mm3 (0.0-0.1); Basophils Percent Auto 0.9 % (0.2-1.2); Eosinophils Absolute Auto 0.1 K/mm3 (0-0.3); Eosinophils Percent Auto 1.5 % (0-4.4); Hematocrit 37.4 % (42.0-52.0); Hemoglobin 12.2 g/dL (14.0-18.0); Immature Granulocyte Absolute 0.02 K/mm3 (0.00-0.031); Immature Granulocyte Percent A 0.3 % (0-0.5); Lymphocytes Absolute Auto 0.82 K/mm3 (0.9-3.2); Mean Corpuscular HGB Conc 32.6 g/dl (32-36); Mean Corpuscular Hemoglobin 31.8 pg (26-34); Mean Corpuscular Volume 97.4 fl (80-100); Mean Platelet Volume 9.6 fl (7.4-10.4); Monocytes Absolute Auto 0.7 K/mm3 (0.1-0.6); Monocytes Percent Auto 10.3 % (2.6-8.5); Neutrophils Absolute Auto 5.2 K/mm3 (1.3-6.7); Platelet Count Result 343 k/mm3 (150-375); Red Blood Count 3.84 M/mm3 (4.6-6.20); White Blood Count 6.9 K/mm3 (4.5-10.0)
[2022-12-03 14:50] LABS: INR 1.1; Prothrombin Time 13.6 Seconds (11.1-14.7)
[2022-12-03 14:51] LABS: Alanine Aminotransferase 21 U/L (6-50); Alkaline Phosphatase 118 U/L (38-126); Anion Gap 4 mmol/L (8-16); Aspartate Amino Transferase 26 U/L (17-59); Bilirubin,Total 0.5 mg/dL (0.2-1.3); Blood Urea Nitrogen 19 mg/dL (9-20); Carbon Dioxide 29 mmol/L (22-30); Chloride 100 mmol/L (98-107); Estimated CRCL calculation 54 ml/min; Estimated Glomerular Filt Rate > 60; Glucose 86 mg/dL (65-110); Lipase 101 U/L (23-300); Partial Thromboplastin Time 29.7 SECONDS (22.3-36.8); Potassium 4.3 mmol/L (3.4-5.0); Sodium 133 mmol/L (137-145)
[2022-12-03 15:06] LABS: Troponin I 0.085 ng/mL (0.000-0.034)
[2022-12-03] MEDS: ASPIRIN 81 MG CHEWABLE TABLET 324 MG PO (15:33)
--- NOTE | 2022-12-03 16:02 | ED.GENADULT ---
HPI - General Adult General Chief complaint: Chest Pain Stated complaint: chest pain Time Seen by Provider: 12/03/22 15:13 History of Present Illness HPI narrative: 87-year-old male presenting to the emergency department for evaluation of some left-sided chest pain. Patient reports last night he was having left-sided chest pain that worsened with inspiration. Patient reports that it was about a 2-3 out of 10 level pain. Patient states that this morning the pain did improve and was down to a 1-2 with deep inspiration. Patient states that since this morning the left-sided chest pain has resolved but he does have some epigastric pain that is worsened with deep inspiration. Patient states that approximately 5 weeks ago he had multiple stents placed at [facility]. Patient was then found to have 7th vertebral fracture and has been in a brace for the last 6 to 8 weeks. Patient then went back to [facility] and had additional stents placed approximately 10 days ago. Patient denies any chest pain when he is not taking deep inspiration. Related Data Home Medications Medication Instructions Recorded Confirmed aspirin 81 mg tablet,delayed 81 mg PO HS 01/23/20 12/03/22 release fluticasone propionate 50 See Rx Instructions intranasal 01/23/20 12/03/22 mcg/actuation nasal DAILY PRN Allergy Symptoms spray,suspension vitamins A,C,S-vvcc-uuggge 4,296 1 cap PO DAILY 01/23/20 12/03/22 mcg-226 mg-90 mg capsule (PreserVision AREDS) benzonatate 200 mg capsule 20 mg PO TID PRN cough 10/29/22 12/03/22 loratadine 10 mg tablet (Allergy 10 mg PO DAILY 10/29/22 12/03/22 Relief (loratadine)) nitroglycerin 0.4 mg sublingual 0.4 mg sublingual Q5M PRN Chest 10/29/22 12/03/22 tablet (Nitrostat) Pain pantoprazole 40 mg tablet,delayed 40 mg PO QAM 10/29/22 12/03/22 release ticagrelor 90 mg tablet (Brilinta) 90 mg PO Q12H 10/29/22 12/03/22 Fiber (psyllium husk) 4 cap BYMOUTH DAILY 10/31/22 12/03/22 Allergies Allergy/AdvReac Type Severity Reaction Status Date / Time No Known Allergies Allergy Verified 12/03/22 13:33 Review of Systems Review of Systems: CONSTITUTIONAL: Denies fever, chills, or sweats. EYES: Denies visual changes, redness, or discharge. ENT: Denies rhinorrhea, congestion, sore throat, or otalgia. CARDIOVASCULAR: See HPI RESPIRATORY: See HPI GASTROINTESTINAL: Denies abdominal pain, nausea, vomiting, or diarrhea. GENITOURINARY: Denies dysuria or hematuria. SKIN: Denies rash or itching. MUSCULOSKELETAL: Denies back pain, joint pain, or myalgia. NEUROLOGIC: Denies headache, numbness, or weakness. PSYCHIATRIC: Denies anxiety or depression. [facility] Past Medical History Medical History Acute embolism and thrombosis of other specified deep vein of right lower extremity Chronic anticoagulation Chronic pain of right knee Coronary artery disease Stent to diagonal in March 2013. Diverticulosis Dyslipidemia Gastroesophageal reflux disease History of fractured vertebra Hypertension Kidney stones Mixed incontinence urge and stress Prostate cancer (2002) Pulmonary embolism (2002) Following prostatectomy. Type 2 diabetes mellitus Vitamin D deficiency Surgical History Surgical History History of arthroscopy of both knees History of bilateral inguinal hernia repair History of cardiac catheterization March 2013: Stent to diagonal 1. November 2014: No significant obstructive lesions. Stent to D1 ostium widely patent. 40 to 50% OM and 40% distal RCA (no change consistent with 2012). total of 5 stents History of cataract extraction with lens replacement History of colonoscopy with polypectomy History of coronary artery stent placement Stent to diagonal branch in March 2013. History of esophagogastroduodenoscopy (09/2022) Schatzki's ring. History of prostatectomy (2002) History of repair of right
[2022-12-03 18:51] LABS: Troponin I 0.088 ng/mL (0.000-0.034)
--- NOTE | 2022-12-03 19:44 | PC.NURSE ---
Assumed care of pt. at this time. Report from JOJO Yoder
[2022-12-03] MEDS: ENOXAPARIN 80 MG/0.8 ML SYRINGE 70 MG SUB-Q (19:53)
--- NOTE | 2022-12-03 20:12 | PM.IMHP ---
H&P: HPI History of Present Illness Date/Time: 12/03/22 20:12 Chief Complaint: Chest pain Narrative: this is an 87-year-old male patient who has a history of having 5 cardiac stents. The patient had some stents placed in September and then just recently had stents placed within the last Ten days at [facility]. The patient was also found to have a 7 vertebral fracture which he is wearing a back brace for the last 6-8 weeks. the patient also had COVID within the last couple of months. The patient came in today because he was complaining of left-sided chest pain. The patient stated that he has pain that is worse with inspiration. The patient is not on any anticoagulation nor has he had any previous history of having any blood clots. The patient is currently on room air and has no complaints of any shortness of breath. Patient's troponins are 0.085, 0.088, and 0.089 respectively. The patient has chronically elevated troponins and this is his baseline. Chest x-ray was read as small left pleural effusion with minimal associated left basilar airspace opacities likely atelectasis. CTA was read as. Subsegmental pulmonary emboli in the lower lobes. These findings were discussed with Dr. Sen Everett MD in the Emergency Department at 1806 hours on 12/03/2022. 2. Small pleural effusions. 3. T7 burst fracture with slight worsening loss of vertebral body height. the patient was started on subcu Lovenox. His H&H is 12.237.4. Sodium is 133. The patient was also given an Aspirin. Patient was being admitted for observation status on the date of service of 12/04/2022. Review of Systems Review of Systems: See HPI All systems reviewed & are unremarkable except as noted in HPI and below Constitutional: Constitutional: Reports as per HPI and Reports no additional constitutional complaints Eyes: Eyes: Reports as per HPI and Reports no additional eye complaints ENT: Reports system reviewed and no additional complaints, except as documented and Reports Normal hearing present Cardiovascular: Cardiovascular: Reports no additional cardiovascular complaints Respiratory: Respiratory: Reports no additional respiratory complaints and Reports no additional respiratory complaints Gastrointestinal: Gastrointestinal: Reports as per HPI and Reports no additional gastrointestinal complaints Musculoskeletal: Musculoskeletal: Reports no additional musculoskeletal complaints Integumentary/Breasts: Skin/Breast: Reports system reviewed and no additional complaints, except as docu and Reports as per HPI Neurologic: Reports system reviewed and no additional complaints, except as documented, Reports as per HPI and Reports Normal hearing present Psychiatric: Psychiatric: Reports no additional psychiatric complaints and Reports as per HPI Endocrine: Endocrine: Reports no additional endocrine complaints Hematologic/Lymphatic: Hematologic/Lymphatic: Reports no additional hematologic/lymphatic complaints Allergic/Immunologic: Allergic/Immunologic: Reports no additional allergic/immunologic complaints [facility] Past Medical History Medical History Acute embolism and thrombosis of other specified deep vein of right lower extremity Chronic anticoagulation Chronic pain of right knee Coronary artery disease Stent to diagonal in March 2013. Diverticulosis Dyslipidemia Gastroesophageal reflux disease History of fractured vertebra Hypertension Kidney stones Mixed incontinence urge and stress Prostate cancer (2002) Pulmonary embolism (2002) Following prostatectomy. Type 2 diabetes mellitus Vitamin D deficiency Surgical History Surgical History History of arthroscopy of both knees History of bilateral inguinal hernia repair History of cardiac catheterization March 2013: Stent to diagonal 1. November 2014: No significant obstructive lesions. Stent
--- NOTE | 2022-12-03 21:23 | PC.NURSE ---
This patient, Delano Bruno, was admitted to IMU Room 203-01 on 12/03/22 at 2115. Patient/family oriented to hospital policies and general routines including ID bracelet, bed and alarms, visiting hours, pain management, procedures, bathroom and other care routines, personal items, smoking policy, room service/diet, and visiting hours. Information on how to activate the Rapid Response Team has been discussed. Patient/Family are encouraged to report perceived risks to care and to ask questions if they do not understand what they are told or what they should do.
[2022-12-03 21:25] LABS: Troponin I 0.089 ng/mL (0.000-0.034)
[2022-12-04] VITALS (11 sets, daily range): BP systolic 126–156; BP diastolic 55–85; PULSE 55–72; RESP 16–20; TEMP 36.3–36.7; O2SAT 94–100
[2022-12-04] MEDS: SIMVASTATIN 20 MG TABLET PO ×2 (02:41→21:21)
[2022-12-04] MEDS: TICAGRELOR 90 MG TABLET PO ×3 (02:41→21:21)
[2022-12-04 04:04] LABS: Basophils Absolute Auto 0.1 K/mm3 (0.0-0.1); Basophils Percent Auto 1.7 % (0.2-1.2); Eosinophils Absolute Auto 0.2 K/mm3 (0-0.3); Eosinophils Percent Auto 4.1 % (0-4.4); Hematocrit 31.6 % (42.0-52.0); Hemoglobin 10.6 g/dL (14.0-18.0); Immature Granulocyte Absolute 0.02 K/mm3 (0.00-0.031); Immature Granulocyte Percent A 0.3 % (0-0.5); Lymphocytes Absolute Auto 1.21 K/mm3 (0.9-3.2); Lymphocytes Percent Auto 20.5 % (18.3-44.2); Mean Corpuscular HGB Conc 33.5 g/dl (32-36); Mean Corpuscular Hemoglobin 31.5 pg (26-34); Mean Platelet Volume 9.8 fl (7.4-10.4); Monocytes Absolute Auto 0.6 K/mm3 (0.1-0.6); Monocytes Percent Auto 9.8 % (2.6-8.5); Neutrophils Absolute Auto 3.7 K/mm3 (1.3-6.7); Neutrophils Percent Auto 63.6 % (45.5-73.1); Platelet Count Result 291 k/mm3 (150-375); Red Blood Count 3.36 M/mm3 (4.6-6.20); Red Cell Distribution Width 14.8 % (11.5-14.5); White Blood Count 5.9 K/mm3 (4.5-10.0)
[2022-12-04 04:13] LABS: Alanine Aminotransferase 18 U/L (6-50); Albumin Level 3.3 g/dL (3.5-5.1); Alkaline Phosphatase 117 U/L (38-126); Anion Gap 3 mmol/L (8-16); Aspartate Amino Transferase 24 U/L (17-59); Bilirubin,Total 0.4 mg/dL (0.2-1.3); Blood Urea Nitrogen 18 mg/dL (9-20); Calcium 8.6 mg/dL (8.4-10.2); Carbon Dioxide 26 mmol/L (22-30); Chloride 104 mmol/L (98-107); Estimated CRCL calculation 61 ml/min; Estimated Glomerular Filt Rate > 60; Glucose 93 mg/dL (65-110); Potassium 4.1 mmol/L (3.4-5.0); Sodium 133 mmol/L (137-145)
[2022-12-04] MEDS: ACETAMINOPHEN 500 MG TABLET 1000 MG PO ×3 (06:39→21:21)
[2022-12-04] MEDS: ENOXAPARIN 80 MG/0.8 ML SYRINGE 70 MG SUB-Q ×2 (08:20→21:22)
[2022-12-04] MEDS: PANTOPRAZOLE 40 MG TABLET PO (09:46)
[2022-12-04] MEDS: OPTI-GEN TAB 1 TABLET PO (09:46)
--- NOTE | 2022-12-04 14:10 | PM.IMPN ---
Progress Note: A&P Assessment and Plan (1) Pulmonary embolism: Code(s): I26.99 - Other pulmonary embolism without acute cor pulmonale Status: Acute Assessment and Plan: The patient has had COVID the last 3 months. echo has been ordered the patient is on room air. He does not appear to have a heart strain the patient was started on subcu Lovenox therapeutic doses the patient had a history of having a pulmonary embolism in 2002 after prostatectomy. The patient had a cardiac catheterization approximately 10 days ago. Follow-up echocardiogram (2) History of fractured vertebra: Code(s): Z87.81 - Personal history of (healed) traumatic fracture Status: Acute Assessment and Plan: The patient needs to wear his back brace. He has a T7 fracture continue with oxycodone continue with methocarbamol (3) Coronary artery disease: Code(s): I25.10 - Atherosclerotic heart disease of [place] coronary artery without angina pectoris Status: Acute Assessment and Plan: the patient has had a total of 5 cardiac stents. The patient is still on Brilinta , Zocor and aspirin Patient denies chest pain (4) Elevated troponin: Code(s): R77.8 - Other specified abnormalities of plasma proteins Status: Acute Assessment and Plan: patient's troponins are chronically elevated. Patient is at his baseline. EKG shows sinus rhythm nonspecific T-wave changes (5) Dyslipidemia: Code(s): E78.5 - Hyperlipidemia, unspecified Status: Acute Assessment and Plan: Continue with Zocor (6) History of prostate cancer: Code(s): Z85.46 - Personal history of malignant neoplasm of prostate Status: Acute Assessment and Plan: history of prostatectomy (7) GERD with esophagitis: Code(s): K21.00 - Gastro-esophageal reflux disease with esophagitis, without bleeding Status: Acute Assessment and Plan: -Continue pantoprazole (8) Anemia, unspecified: Code(s): D64.9 - Anemia, unspecified Status: Acute Assessment and Plan: the patient is at his baseline. Continue with multivitamins Subjective Date/time seen: 12/04/22 14:10 Sonogram patient. The patient denies chest pain, shortness of breath resolves. Patient is afebrile, hemodynamically stable, no oxygen Exam Narrative: GENERAL: Pleasant, in no acute distress. Well-nourished. - EYES: EOMI. Anicteric. - HENT: Moist mucous membranes. - LUNGS: Clear to auscultation bilaterally, no wheezing, rhonchi, or rales. - CARDIOVASCULAR: Regular rate and rhythm. No murmur. No JVD. - ABDOMEN: Soft, non-tender and non-distended. No palpable masses. - EXTREMITIES: No edema. Peripheral pulses 2+. Non-tender. - NEUROLOGIC: No focal neurological deficits. CN II-XII grossly intact. - PSYCHIATRIC: Awake, Alert and oriented x 3. Appropriate mood and affect. - SKIN: No rashes or lesions. Warm. - LYMPH: No cervical lymphadenopathy. Objective Data Vital Signs Vital Signs: Vital Signs - 24 hr 12/03/22 14:32 12/03/22 15:24 12/03/22 15:24 Temperature 97.8 F Pulse Rate 69 62 67 Respiratory Rate 17 17 Blood Pressure 148/98 H 166/76 H Pulse Oximetry 100 100 Oxygen Delivery Room Air 12/03/22 15:31 12/03/22 16:01 12/03/22 16:16 Temperature Pulse Rate 65 54 L 52 L Respiratory Rate 23 H 19 20 Blood Pressure 156/89 H 146/60 H 132/73 Pulse Oximetry 99 100 97 Oxygen Delivery 12/03/22 16:46 12/03/22 17:01 12/03/22 17:16 Temperature Pulse Rate 60 58 L 56 L Respiratory Rate 27 H 14 12 Blood Pressure 156/71 H 156/68 H 148/72 H Pulse Oximetry 97 98 100 Oxygen Delivery 12/03/22 17:32 12/03/22 18:45 12/03/22 19:05 Temperature Pulse Rate 66 59 L 61 Respiratory Rate 11 L 19 16 Blood Pressure 154/86 H 157/87 H Pulse Oximetry 100 100 99 Oxygen Delivery 12/03/22 19:16 12/03/22 19:30 12/03/22 19:33 Temperature Pulse Rate 63 79 77 Res
[2022-12-04] MEDS: polyethylene glycoL 3350 17 GM POWD.PACK PO (14:17)
[2022-12-04] MEDS: ASPIRIN 81 MG ENTERIC TABLET PO (21:22)
[2022-12-05] VITALS (7 sets, daily range): BP systolic 123–167; BP diastolic 69–79; PULSE 53–92; RESP 18–20; TEMP 36.3–36.4; O2SAT 96–99
[2022-12-05] MEDS: ACETAMINOPHEN 500 MG TABLET 1000 MG PO ×3 (05:32→21:08)
[2022-12-05] MEDS: ENOXAPARIN 80 MG/0.8 ML SYRINGE 70 MG SUB-Q (08:15)
[2022-12-05] MEDS: PANTOPRAZOLE 40 MG TABLET PO (08:16)
[2022-12-05] MEDS: TICAGRELOR 90 MG TABLET PO ×2 (08:16→21:08)
[2022-12-05] MEDS: OPTI-GEN TAB 1 TABLET PO (08:16)
[2022-12-05] MEDS: polyethylene glycoL 3350 17 GM POWD.PACK PO (10:20)
--- NOTE | 2022-12-05 11:13 | PM.IMPN ---
Progress Note: A&P Assessment and Plan (1) Pulmonary embolism: Code(s): I26.99 - Other pulmonary embolism without acute cor pulmonale Status: Acute Assessment and Plan: The patient has had COVID the last 3 months. echo has been ordered the patient is on room air. He does not appear to have a heart strain received subcu Lovenox therapeutic doses the patient had a history of having a pulmonary embolism in 2002 after prostatectomy. The patient had a cardiac catheterization approximately 10 days ago. Follow-up echocardiogram and venous Doppler of lower extremities change to eliquis 10 mg bid po 02/04 (2) History of fractured vertebra: Code(s): Z87.81 - Personal history of (healed) traumatic fracture Status: Acute Assessment and Plan: The patient needs to wear his back brace. He has a T7 fracture continue with oxycodone continue with methocarbamol (3) Coronary artery disease: Code(s): I25.10 - Atherosclerotic heart disease of [place] coronary artery without angina pectoris Status: Acute Assessment and Plan: the patient has had a total of 5 cardiac stents. c/w Brilinta , Zocor and aspirin Patient denies chest pain (4) Elevated troponin: Code(s): R77.8 - Other specified abnormalities of plasma proteins Status: Acute Assessment and Plan: patient's troponins are chronically elevated. Patient is at his baseline. EKG shows sinus rhythm nonspecific T-wave changes (5) Dyslipidemia: Code(s): E78.5 - Hyperlipidemia, unspecified Status: Acute Assessment and Plan: Continue with Zocor (6) History of prostate cancer: Code(s): Z85.46 - Personal history of malignant neoplasm of prostate Status: Acute Assessment and Plan: history of prostatectomy (7) GERD with esophagitis: Code(s): K21.00 - Gastro-esophageal reflux disease with esophagitis, without bleeding Status: Acute Assessment and Plan: -Continue pantoprazole (8) Anemia, unspecified: Code(s): D64.9 - Anemia, unspecified Status: Acute Assessment and Plan: the patient is at his baseline. Continue with multivitamins Plan may the charge patient home on Tuesday if echocardiogram is unremarkable Subjective Date/time seen: 12/05/22 11:13 Interval history: PATIENT DENIES CHEST PAIN, SHORTNESS OF BREATH. PATIENT STILL HAS LACK PAIN, PROMINENT LEFT LEG. NO NEW ISSUE EVEN OVERNIGHT Exam Narrative: GENERAL: Pleasant, in no acute distress. Well-nourished. - EYES: EOMI. Anicteric. - HENT: Moist mucous membranes. - LUNGS: Clear to auscultation bilaterally, no wheezing, rhonchi, or rales. - CARDIOVASCULAR: Regular rate and rhythm. No murmur. No JVD. - ABDOMEN: Soft, non-tender and non-distended. No palpable masses. - EXTREMITIES: No edema. Peripheral pulses 2+. calf tender left leg. - NEUROLOGIC: No focal neurological deficits. CN II-XII grossly intact. - PSYCHIATRIC: Awake, Alert and oriented x 3. Appropriate mood and affect. - SKIN: No rashes or lesions. Warm. - LYMPH: No cervical lymphadenopathy. Objective Data Vital Signs Vital Signs: Vital Signs - 24 hr 12/04/22 12:00 12/04/22 12:00 12/04/22 20:00 Temperature 98.1 F Pulse Rate 57 L 59 L Respiratory Rate 20 Blood Pressure 156/85 H Pulse Oximetry 100 Oxygen Delivery Room Air 12/04/22 20:00 12/04/22 22:00 12/05/22 00:00 Temperature 97.6 F Pulse Rate 58 L 62 53 L Respiratory Rate 16 Blood Pressure 150/76 H Pulse Oximetry 99 Oxygen Delivery 12/05/22 04:00 12/05/22 06:00 12/05/22 08:00 Temperature 97.3 F L Pulse Rate 61 56 L Respiratory Rate 20 Blood Pressure 167/79 H Pulse Oximetry 99 Oxygen Delivery Room Air Intake/Output Intake/Output: Intake & Output 12/02/22 12/03/22 12/04/22 12/05/22 23:59 23:59 23:59 23:59 Intake Total 7301 735 Output Total 875 1300 Balance 742 -565 M
[2022-12-05] MEDS: methocarbamoL 750 MG TABLET PO ×2 (16:30→21:08)
[2022-12-05] MEDS: APIXABAN 5 MG TABLET 10 MG PO (21:08)
[2022-12-05] MEDS: SIMVASTATIN 20 MG TABLET PO (21:08)
[2022-12-05] MEDS: ASPIRIN 81 MG ENTERIC TABLET PO (21:08)
--- NOTE | 2022-12-06 | ECHO_ITS ---
Patient Info Name: Delano Bruno Age: 87 years : 1935 Gender: Male Ht: 68 in Wt: 156 lbs BSA: 1.85 m2 HR: 60 bpm BP: 146 / 74 mmHg Heart Rhythm: Sinus Rhythm Exam Date: 12/06/2022 2:11 PM Exam Location: [facility] Patient Status: Inpatient Admit Date: 12/03/2022 Staff Ordering Physician: Cecilia Lomeli NP Guide Dog Instructor: Christofer Gonsalves RDCS, RT Attending Provider: Sylvester Madison MD Referring Physician: Armani SAAVEDRA; Exam Type: CA echo doppler color flow Study Info Indications I26.99 - Other pulmonary embolism without acute cor pulmonale Complete two-dimensional, color flow and Doppler transthoracic echocardiogram is performed. Strain analysis performed. Summary 1. Complete two-dimensional, color flow and Doppler transthoracic echocardiogram is performed. 2. Left ventricular chamber dimension is normal. 3. Left ventricular systolic function is normal, estimated at 50-55%. 4. There is mildly increased left ventricular wall thickness. 5. The left ventricular diastolic function is grade I diastolic dysfunction. 6. Right ventricular chamber dimension is mildly enlarged. 7. Right ventricular systolic function is normal. 8. Left atrial chamber dimension is moderately enlarged. 9. Right atrial chamber dimension is moderately enlarged. 10. There is moderate aortic valve calcification. 11. There is moderate mitral valve regurgitation. 12. There is mild tricuspid valve regurgitation. 13. The aortic root size at the sinus of Valsalva is mildly dilated. Left Ventricle Left ventricular chamber dimension is normal. Left ventricular systolic function is normal, estimated at 50-55%. There is mildly increased left ventricular wall thickness. The left ventricular diastolic function is grade I diastolic dysfunction. Global longitudinal strain is abnormal at -15 %. Right Ventricle Right ventricular chamber dimension is mildly enlarged. Right ventricular systolic function is normal. Left Atria Left atrial chamber dimension is moderately enlarged. Right Atria Right atrial chamber dimension is moderately enlarged. Atrial Septum Intact interatrial septum visualized by color flow imaging. Aortic Valve The aortic valve is probable trileaflet. There is no aortic valve stenosis. There is no aortic valve regurgitation. There is moderate aortic valve calcification. Pulmonic Valve The pulmonic valve is not well visualized. Mitral Valve The mitral valve has normal leaflets. There is moderate mitral valve regurgitation. Tricuspid Valve There is mild tricuspid valve regurgitation. Pericardium/Pleural There is no pericardial effusion. Aorta The aortic root size at the sinus of Valsalva is mildly dilated. Left Ventricular Outflow Tract Name Value Normal LVOT 2D LVOT Diameter 2.1 cm LVOT Doppler LVOT Peak Gradient 2 mmHg LVOT Mean Gradient 1 mmHg LVOT VTI 19 cm LVOT VTI/AV VTI Ratio 0.6 LVOT Stroke Volume 67 ml LVOT CO
[2022-12-06 05:33] VITALS: BP 146/76; PULSE 55; RESP 20; TEMP 36.4; O2SAT 98
[2022-12-06] MEDS: TICAGRELOR 90 MG TABLET PO (10:14)
[2022-12-06] MEDS: OPTI-GEN TAB 1 TABLET PO (10:14)
[2022-12-06] MEDS: APIXABAN 5 MG TABLET 10 MG PO ×2 (10:14→18:24)
[2022-12-06] MEDS: PANTOPRAZOLE 40 MG TABLET PO (10:14)
[2022-12-06 14:00] VITALS: BP 130/72; PULSE 61; RESP 16; TEMP 36.7; O2SAT 99
[2022-12-06 14:14] VITALS: BMI 23.7
[2022-12-06] MEDS: ACETAMINOPHEN 500 MG TABLET 1000 MG PO (15:52)
--- NOTE | 2022-12-06 16:34 | PM.DS ---
DS: Admitting Diagnosis Discharge Date 12/06/22 Admitting Diagnosis Pulmonary Embolism DS: Discharge Diagnosis Discharge Diagnosis (1) Pulmonary embolism: Code(s): I26.99 - Other pulmonary embolism without acute cor pulmonale Status: Acute (2) History of fractured vertebra: Code(s): Z87.81 - Personal history of (healed) traumatic fracture Status: Acute DS: Summary Hospital Course Reason for hospitalization: Pulmonary Embolism Hospital Course: ?87-year-old male patient who has a history of having 5 cardiac stents, presented with left sided chest pain.CTA was read as. Subsegmental pulmonary emboli in the lower lobes. Echo was unremarkable. Started on Eliquis, discharged home in stable condition. Status at Discharge Functional status at discharge: independent ambulation Overall status at discharge: patient is back to baseline Time Spent with Patient Time attestation: Total time spent providing and/or coordinating discharge services: Exam Narrative: GENERAL: Pleasant, in no acute distress. Well-nourished. - EYES: EOMI. Anicteric. - HENT: Moist mucous membranes. - LUNGS: Clear to auscultation bilaterally, no wheezing, rhonchi, or rales. - CARDIOVASCULAR: Regular rate and rhythm. No murmur. No JVD. - ABDOMEN: Soft, non-tender and non-distended. No palpable masses. - EXTREMITIES: No edema. Peripheral pulses 2+. calf tender left leg. - NEUROLOGIC: No focal neurological deficits. CN II-XII grossly intact. - PSYCHIATRIC: Awake, Alert and oriented x 3. Appropriate mood and affect. - SKIN: No rashes or lesions. Warm. - LYMPH: No cervical lymphadenopathy. Discharge Plan Discharge Attending physician on discharge: Marli Soares Consulting providers: Cecilia Lomeli ; Eugenio Chavez ; Kennedy Vincent ; Sen Everett ; Guillermo Owens ; Lawson Jhaveri V. ; Jany Dietrich Discharging Clinician: Marli Soares Anticipated Discharge Date/Time: 12/06/22 16:31 Patient Disposition: Home, Self-Care Activity: as tolerated Diet: heart healthy Patient Instructions: Antibiotic Form, Ticagrelor (By mouth) Stand Alone Forms: General Discharge Information Follow-up/Referrals: Rosy Ortiz MD [Primary Care Provider] - 2 Weeks Discharge Medications: New Eliquis DVT-PE Treat 30D Start 5 mg (74 tabs) tablets,dose pack 5 mg PO ONCE Qty: 74 1RF Continued aspirin 81 mg tablet,delayed release (DR/EC) 81 mg PO HS PreserVision AREDS [id number] eioy-yt-birt capsule 1 cap PO DAILY pantoprazole 40 mg tablet,delayed release (DR/EC) 40 mg PO QAM Brilinta 90 mg tablet 90 mg PO Q12H methocarbamol 750 mg tablet 750 mg PO TID PRN (Reason: muscle pain) Qty: 30 0RF Fiber (psyllium husk) 4 cap BYMOUTH DAILY polyethylene glycol 3350 [Miralax] 17 gram Powder In Packet 17 g PO QAM PRN (Reason: constipation) 30 Days Qty: 14 0RF sennosides-docusate sodium [Senokot-S] 8.6-50 mg Tablet 1 tab-cap PO HS PRN (Reason: constipation) Qty: 14 0RF acetaminophen 500 mg Tablet 1,000 mg PO Q8HR 30 Days Qty: 180 0RF oxycodone 5 mg Tablet 5 mg PO Q4H PRN (Reason: Pain Rated 7-10) Qty: 60 0RF simvastatin 20 mg tablet 20 mg PO HS Qty: 90 0RF Date of admission: 12/03/22 18:37 Primary Care Provider: Rosy Ortiz Admitting Provider: Sylvester Madison Attending physician on admission: Marli Soares Condition: Stable [facility] Discharge Hospital Discharge: 30077 Hosp D/C >30 Min
--- NOTE | 2022-12-06 19:54 | PC.NURSE ---
Pt has ambulated the halls multiple times today. Pt has had no complaints of pain and participated and contributed in plan of care. Pt was educated on [employer] information and all questions answered. Pt was monitored for changes in status. Pt IV was removed and bleeding was stopped. Pt discharged home with .
== END 2022-12-06 18:45 | disposition home or self-care (01) ==
LOC: ANHED 20:18 → ANHIMU 22:51 → ANH3MEDSUR 12-06 15:52 → ANHIMU 12-07 10:48
PROVIDERS: Emergency Medicine; Nurse Practitioner; Admitting Provider Internal Medicine; Emergency Provider Emergency Medicine; PCP Internal Medicine; Visit Provider Internal Medicine
DX: I26.99 Other pulmonary embolism without acute cor pulmonale (principal); Z87.81 Personal history of (healed) traumatic fracture; I25.10 Atherosclerotic heart disease of native coronary artery without angina pectoris; Z95.5 Presence of coronary angioplasty implant and graft; R77.8 Other specified abnormalities of plasma proteins; E78.5 Hyperlipidemia, unspecified; Z85.46 Personal history of malignant neoplasm of prostate; K21.00 Gastro-esophageal reflux disease with esophagitis, without bleeding; D64.9 Anemia, unspecified; R07.9 Chest pain, unspecified; R05.9 Cough, unspecified; I08.3 Combined rheumatic disorders of mitral, aortic and tricuspid valves; I11.9 Hypertensive heart disease without heart failure; J90 Pleural effusion, not elsewhere classified; E11.9 Type 2 diabetes mellitus without complications; E55.9 Vitamin D deficiency, unspecified; M79.10 Myalgia, unspecified site; Z96.651 Presence of right artificial knee joint; Z86.16 Personal history of COVID-19; Z79.82 Long term (current) use of aspirin; Z79.51 Long term (current) use of inhaled steroids; Z79.891 Long term (current) use of opiate analgesic; Z79.02 Long term (current) use of antithrombotics/antiplatelets; Z79.899 Other long term (current) drug therapy; Z80.42 Family history of malignant neoplasm of prostate; Z82.49 Family history of ischemic heart disease and other diseases of the circulatory system
CPT/HCPCS: 36415; 71046; 71275; 80053; 83690; 83735; 84443; 84484; 85025; 85610; 85730; 93005; 93306; 93970; 96372; 99213; 99285; A9270; G0378; G0463; J1650; Q9967

== ENCOUNTER 2022-12-10 15:59 | Outpatient (CLI) | payer MEDICARE, SELFPAY ==
[2022-12-10 19:24] LABS: INR 1.3; Prothrombin Time 15.4 Seconds (11.1-14.7)
[2022-12-10 19:27] LABS: Basophils Absolute Auto 0.1 K/mm3 (0.0-0.1); Basophils Percent Auto 1.1 % (0.2-1.2); Eosinophils Absolute Auto 0.2 K/mm3 (0-0.3); Eosinophils Percent Auto 2.4 % (0-4.4); Hematocrit 37.6 % (42.0-52.0); Hemoglobin 11.9 g/dL (14.0-18.0); Immature Granulocyte Absolute 0.02 K/mm3 (0.00-0.031); Immature Granulocyte Percent A 0.3 % (0-0.5); Lymphocytes Absolute Auto 0.98 K/mm3 (0.9-3.2); Lymphocytes Percent Auto 13.1 % (18.3-44.2); Mean Corpuscular HGB Conc 31.6 g/dl (32-36); Mean Corpuscular Hemoglobin 32.2 pg (26-34); Mean Corpuscular Volume 101.9 fl (80-100); Mean Platelet Volume 10.7 fl (7.4-10.4); Monocytes Absolute Auto 0.7 K/mm3 (0.1-0.6); Monocytes Percent Auto 8.8 % (2.6-8.5); Neutrophils Absolute Auto 5.6 K/mm3 (1.3-6.7); Neutrophils Percent Auto 74.3 % (45.5-73.1); Platelet Count Result 306 k/mm3 (150-375); Red Blood Count 3.69 M/mm3 (4.6-6.20); Red Cell Distribution Width 15.8 % (11.5-14.5); White Blood Count 7.5 K/mm3 (4.5-10.0)
== END 2022-12-10 16:00 | disposition home or self-care (01) ==
LOC: ANHGOSHLAB 16:01
PROVIDERS: PCP Internal Medicine; Visit Provider Nurse Practitioner Family
DX: Z91.89 Other specified personal risk factors, not elsewhere classified (principal); H11.30 Conjunctival hemorrhage, unspecified eye; Z79.01 Long term (current) use of anticoagulants
CPT/HCPCS: 36415; 85025; 85610

== ENCOUNTER 2023-01-06 09:56 | Outpatient (CLI) | payer MEDICARE, SELFPAY ==
--- NOTE | ~2023-01-06 | XR_ITS ---
XR thoracic spine 2V DATE: 01/06/2023 10:20 INDICATION: Back pain TECHNIQUE: AP, lateral views COMPARISON: 11/02/2022 thoracic spine 10/31/2022 CT thoracic spine images are not available on PACS FINDINGS: There is diffuse osteopenia. Prominent T7 fracture deformity with prominent loss of height and anterior wedging. There is mild ant erior wedging at T5, also chronic since 11/02/2022. No new fracture is evident. No dislocation. The thoracic pedicles appear intact. No paraspinal soft t issue thickening. IMPRESSION: Stable T5 and to a greater extent T7 fracture deformities, unchanged since 11/02/2022 Osteopenia Reviewed, dictated and finalized at location A. IMPRESSION: Stable T5 and to a greater extent T7 fracture deformities, unchange d since 11/02/2022 Osteopenia
== END 2023-01-06 09:57 | disposition home or self-care (01) ==
PROVIDERS: PCP Internal Medicine; Visit Provider Neurological Surgery
DX: S22.069A Unspecified fracture of T7-T8 vertebra, initial encounter for closed fracture (principal); M85.88 Other specified disorders of bone density and structure, other site; T14.90XA Injury, unspecified, initial encounter
CPT/HCPCS: 72070

== ENCOUNTER 2023-01-12 10:30 | Outpatient (RCR) | payer MEDICARE, SELFPAY ==
--- NOTE | 2022-12-14 12:31 | STOPEVAL1 ---
Assessment and note entered by Nesha Garcia, FINAL ASSEMBLY WORKER Evaluation Information Assessment Status Evaluation Diagnosis Dysphonia/Dysphagia Onset Dysphagia approximately two years ago Subjective Information The patient reports that he is concerned about his vocal loudness; he and his both reorted that he is unable to project his voice and others cannot understand him. Patient also reported that he has had difficulty swallowing; he noted that he has had a cough after swallowing his meals. He denied coughing during his meals but that it could occur several minutes up to one-half hour after the completion of his meals. reports that patient's soft voice has accompanied the coughing while swallowing. When asked what caused more problems, or what he was most concerned about, patient stated, the vocal cord bowing He voiced that he is concerned about the coughing but more concerned to know why he was coughing rather than that he was coughing. 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 See Subjective notes above. Today the patient presented with a mild voice disorder characterized as hoarse, raspy vocal quality that contributes to reduced listener ability to hear and understand the patient. In general voice disorder is consistent however there are situations when it is more difficult to hear this patient such as in noisy environment. Additionally, although patient's swallowing skills are grossly within normal limits, he exhibited a wet vocal quality/wet throat sounds throughout this evaluation causing therapist to request patient to clear his throat and swallow. Nonetheless, the wetness returned and patient was not observed to independently clear the residual. Patient will be seen twice weekly for four weeks for vocal hygiene home progran, laryngeal adduction strengthening exercises and other tasks to improve vocal lo
--- NOTE | 2023-01-12 11:42 | STOPDC ---
Assessment and note entered by Nesha Garcia, SELF STORAGE MANAGER Evaluation Information Assessment Status Discharge Reported Pain Level Pain Score 0: Self Report Assessment ST Clinical Summary TREATMENT SUMMARY AND DISCHARGE SUMMARY This patient was seen for an initial Swallowing and voice evaluation and then 6 additional treatment sessions. Patient initially reported coughing occasionally during meals with regurgitation of food such as peanuts and grape skins following the completion of meals. He also reported wet vocal quality at times with need for throat clearing, and then a hoarse, raspy voice. Today the patient and his were interviewed concerning patient's progress. They reported the following observations: The patient reported that he feels that he has no significant difficulty swallowing at this time; he stated that occasionally he had to regurgitate food as mentioned above, however now he admits to only occasional cough during a meal, usually something from soft to solid consistency but he is not regurgitating food after meals. reported that she feels the patient's swallowing has improved overall howevcer she noted that he does occasionally cough during a random meal but not as frequently as prior to Speech Therapy. Patient reported that he has been and still is concerned about his vocal loudness. Patient stated that he is much more aware of need to use more volume and he does make an increased effort to speak more loudly and distinctly. also agreed that patient's voice is more loud and patient is more aware that he needs to project his voice. Today the patient sustained ah sound for close to 15 seconds, reaching maximum decibel level of 92 decibels, but averaging 88 decibels. His previous average decibel level was 72 decibels. Patient's vocal loudness the conversational level continued to average at 73 decibels however his range increased to 76 decibels indicating an overal improvement in vocal loudness. Patient is being discharged this date with goals achieved, home program
== END 2023-01-12 14:16 | disposition home or self-care (01) ==
LOC: ANHST 10:30
PROVIDERS: PCP Internal Medicine; Visit Provider Otolaryngology
DX: J38.7 Other diseases of larynx (principal); J38.3 Other diseases of vocal cords; R13.10 Dysphagia, unspecified
CPT/HCPCS: 92507; 92524; 92526; 92610; 99199

== ENCOUNTER → 2023-03-08 10:10 | Outpatient (CLI) | payer MEDICARE, SELFPAY ==
--- NOTE | ~2023-03-08 | US_ITS ---
EXAMINATION: US soft tissue groin RT DATE: 03/08/2023 10:49 INDICATION: Unilateral inguinal hernia without obstruction, right side. TECHNIQUE: Multiple grayscale and Doppler ultrasound images of the right groin were obtained. COMPARISON: None FINDINGS: There are no pathologically enlarged lymph nodes. There is no abnormal mass. There is no he rnia. IMPRESSION: 1. No abnormality in the patient's area of concern in right inguinal region. Reviewed, dictated and finalized at location A.
== END ==
PROVIDERS: PCP Family Medicine; Visit Provider Family Medicine
DX: K40.90 Unilateral inguinal hernia, without obstruction or gangrene, not specified as recurrent (principal); R22.2 Localized swelling, mass and lump, trunk
CPT/HCPCS: 76882

== ENCOUNTER 2023-05-20 11:00 | Outpatient (RCR) | payer MEDICARE, SELFPAY ==
--- NOTE | 2023-03-14 16:26 | OPREHPOC ---
Outpatient Therapy Plan of Care This is a Multidisciplinary Plan of Care that may contain components documented by all disciplines (PT, OT, and ST.) PT Problem 1 PT Problem #1 Knowledge Deficit PT Goal 1 Goal Pt to be IND with issued HEP Target Visit 8 PT Problem 2 PT Problem #2 Pain PT Goal 1 Goal Pt to report low back pain no greater than 3/10 in the last week Target Visit 8 PT Goal 2 Goal Pt to report 50% improvement in overall symptoms PT Problem 3 PT Problem #3 Impaired Range of Motion PT Goal 1 Goal Pt to report no increase in pain with active lumbar motion Target Visit 8 PT Goal 2 Goal Pt to improve frannie hamstring length to -20 deg Target Visit 8 PT Problem 4 PT Problem #4 Impaired Functional Mobil PT Goal 1 Goal Pt to be able to complete a sit to stand without UE support Target Visit 8 PT Goal 2 Goal Pt to improve 2 min walking distance from 200ft to 300ft
--- NOTE | 2023-03-14 16:26 | PTOPEVAL1 ---
Assessment and note entered by Chente Escobar, PT, DPT Evaluation Information Assessment Status Evaluation Diagnosis low back pain Onset 1 month Subjective Information Pt states he has a pinched nerve in his lumber spine. He has been using a lidocaine patch and muscle relaxer to help with pain. Pt reports radiating pain down the front of his thighs. He states he is pretty unstable on his feet first thing in the morning d/t pain. Pt states starting in October he wore a thoracic brace for 9 weeks d/t a T7 burst fracture. He feels like this is healed. He has 5 cardiac stands placed in early October. Reported Pain Level Pain Score 3: Self Report Assessment PT Clinical Summary Delano presents to therapy today for his initial evaluation with a diagnosis of low back pain. Today he demonstrates BLE ROM that is WNL but pain increases with max hip flexion, his BLE strength is grossly 3/5, and he states with a flexed posture. He ambulates with a decreased gait speed, decreased foot clearance, and requires a cane for stability. Skilled therapy services are indicated to address the deficits noted above, to manage pain, and to return to PLOF. Plan of Care Interventions Electrical Stimulation,Gait Training,Hot Pack/Cold Pack,Manual Therapy,Neuro Re-education,Patient/ Caregiver Educati,Therapeutic Activities, Therapeutic Exercise PT Services Indicated Yes Treatment Frequency and 2x/wk for 4 wks Duration These treatments will address the objective and functional deficits as defined above. The patient will be advanced safely and appropriately in order for the patient to progress towards his/her prior level of function. Additional exercises will be introduced and as well as a comprehensive home exercise program upon discharge, if needed, ?to ensure carryover of functional gains achieved in the clinic. This treatment plan has been reviewed and agreement upon by the patient.
--- NOTE | 2023-03-22 14:16 | PCPTNOTE ---
On 03/22/23, the student Sofia Kilpatrick, provided care and completed [facility] documentation on this patient. I have reviewed the student's documentation and agree with the findings.
--- NOTE | 2023-03-29 15:38 | PCPTNOTE ---
On 03/29/23, the student Aziza Kilpatrick, provided care and completed [employer] documentation on this patient. I have reviewed the student's documentation and agree with the findings.
--- NOTE | 2023-04-01 16:30 | PCPTNOTE ---
On 04/01/23, the student, Finesse Black provided care and completed [facility] documentation on this patient. I have reviewed the student's documentation and agree with the findings.
--- NOTE | 2023-04-08 15:58 | PCPTNOTE ---
On 04/08/23, the student, Aziza Kilpatrick, provided care and completed [facility] documentation on this patient. I have reviewed the student's documentation and agree with the findings.
--- NOTE | 2023-04-12 10:17 | PCPTNOTE ---
Patient did not show up for scheduled appointment this date. Called and attempted to leave voicemail, pt does not have voicemail set up.
--- NOTE | 2023-04-21 15:26 | PTOPPROG ---
Assessment and note entered by Chente Escobar, PT, DPT Evaluation Information Assessment Status Progress Diagnosis low back pain Onset 1 month Subjective Information Pt states he is doing good, he states he improving daily. He states he feels like he is standing and walking a lot taller than he was. He states he has weaned off the cane at home and out in the community. He states he still feels some weakness in his leg but feels like this has improved. He states he felt the stronger yesterday than he has in a long time. He states his balance has improved but he still feel unstable at times. Assessment PT Clinical Summary Delano presents to therapy today for his initial evaluation with a diagnosis of low back pain. Today he demonstrates improved LE strength, grossly 4/5, improved gait speed, and improved upright posture. He continues to need cueing during exercise for alignment, posture, and to avoid substitutions. Pt is making progress towards his therapy goals. Continuation killed therapy services are indicated to further improve posture, strength, balance, and to improve functional mobility. Plan of Care Interventions Electrical Stimulation,Gait Training,Hot Pack/Cold Pack,Manual Therapy,Neuro Re-education,Patient/ Caregiver Educati,Therapeutic Activities, Therapeutic Exercise PT Services Indicated Yes Treatment Frequency and 2x/wk for 4 wks Duration These treatments will address the objective and functional deficits as defined above. The patient will be advanced safely and appropriately in order for the patient to progress towards his/her prior level of function. Additional exercises will be introduced and as well as a comprehensive home exercise program upon discharge, if needed, ?to ensure carryover of functional gains achieved in the clinic. This treatment plan has been reviewed and agreement upon by the patient.
--- NOTE | 2023-05-20 17:53 | PTOPDC ---
Assessment and note entered by Chente Escobar, PT, DPT Evaluation Information Assessment Status Discharge Diagnosis low back pain Onset 1 month Subjective Information Pt states overall his back pain is doing better. He states he still gets some aches and pains but the more straight he stands up the less his back hurts. He states his knee, upper back, and lower back all have improved with therapy. He declines any lower back pain in the last week and 2/10 at the worst in the upper back. Pt states he has been able to do outdoor yard work again. Reported Pain Level Pain Score 0: Self Report Assessment PT Clinical Summary Delano presents to therapy today for his progress report following 15 visits of therapy to treat his diagnosis of low back pain. Today he reports no back pain in the last 2 weeks, no increase in low back pain with active lumbar motion, and no functional limitations. He has met or progressed well towards all of his therapy goals. Pt was hesitant about being discharged from therapy and states he is worried he will regress. Extra time spent with pt to explain all the improvements he has made, to discuss community based exercise programs, and gave ideas for accountability. Pt agreeable to be discharged and plans to follow up with referring provider if additional therapy is needed at a later date.
== END 2023-05-23 10:13 | disposition home or self-care (01) ==
LOC: ANHGOSHPT 11:00
PROVIDERS: PCP Family Medicine; Visit Provider Family Medicine
DX: M54.50 Low back pain, unspecified (principal)
CPT/HCPCS: 97110; 97112; 97161; 97530; 99199

== ENCOUNTER 2023-06-01 15:00 | Outpatient (RCR) | payer MEDICARE, SELFPAY | END 2023-06-01 23:59 | disposition home or self-care (01) | LOC: ANHCPREHAB 15:00 | PROVIDERS: PCP Internal Medicine; Visit Provider Internal Medicine Cardiovascular Disease | DX: Z95.5 Presence of coronary angioplasty implant and graft (principal) | CPT/HCPCS: 93798 ==

== ENCOUNTER 2023-06-22 08:54 | Outpatient (CLI) | payer MEDICARE, SELFPAY ==
[2023-06-22 11:41] LABS: Hematocrit 38.7 % (42.0-52.0); Hemoglobin 12.5 g/dL (14.0-18.0); Mean Corpuscular HGB Conc 32.3 g/dl (32-36); Mean Platelet Volume 10.9 fl (7.4-10.4); Platelet Count Result 232 k/mm3 (150-375); Red Blood Count 3.91 M/mm3 (4.6-6.20); Red Cell Distribution Width 13.5 % (11.5-14.5); White Blood Count 5.4 K/mm3 (4.5-10.0)
[2023-06-22 11:58] LABS: Alanine Aminotransferase 23 U/L (6-50); Albumin Level 3.7 g/dL (3.5-5.1); Alkaline Phosphatase 94 U/L (38-126); Anion Gap 1 mmol/L (8-16); Aspartate Amino Transferase 68 U/L (17-59); Bilirubin,Total 0.7 mg/dL (0.2-1.3); Blood Urea Nitrogen 22 mg/dL (9-20); Calcium 8.7 mg/dL (8.4-10.2); Carbon Dioxide 32 mmol/L (22-30); Chloride 104 mmol/L (98-107); Cholesterol 150 mg/dL (0-200); Estimated Glomerular Filt Rate > 60; Glucose 96 mg/dL (65-110); HDL Direct 52 mg/dL; Potassium 4.2 mmol/L (3.4-5.0); Sodium 137 mmol/L (137-145); Triglycerides 70 mg/dL (<150)
[2023-06-22 12:09] LABS: LDL Cholesterol Direct 68 mg/dL
[2023-06-22 17:37] LABS: Prostate Specific Antigen < 0.1 ng/mL (< OR = 4.0)
== END 2023-06-22 08:55 | disposition home or self-care (01) ==
PROVIDERS: PCP Family Medicine; Visit Provider Family Medicine
DX: D64.9 Anemia, unspecified (principal); E11.9 Type 2 diabetes mellitus without complications; E78.5 Hyperlipidemia, unspecified; H69.80 Other specified disorders of Eustachian tube, unspecified ear; I10 Essential (primary) hypertension; I25.10 Atherosclerotic heart disease of native coronary artery without angina pectoris; I25.119 Atherosclerotic heart disease of native coronary artery with unspecified angina pectoris; I26.99 Other pulmonary embolism without acute cor pulmonale; I35.0 Nonrheumatic aortic (valve) stenosis; K21.00 Gastro-esophageal reflux disease with esophagitis, without bleeding; K21.9 Gastro-esophageal reflux disease without esophagitis; M54.50 Low back pain, unspecified; M54.6 Pain in thoracic spine; R55 Syncope and collapse; S22.000A Wedge compression fracture of unspecified thoracic vertebra, initial encounter for closed fracture; S22.061A Stable burst fracture of T7-T8 vertebra, initial encounter for closed fracture; Z85.46 Personal history of malignant neoplasm of prostate; Z87.81 Personal history of (healed) traumatic fracture; X58.XXXA Exposure to other specified factors, initial encounter
CPT/HCPCS: 36415; 80053; 80061; 84153; 85027

== ENCOUNTER 2023-07-28 11:11 | Outpatient (CLI) | payer MEDICARE, SELFPAY ==
[2023-07-28 19:49] LABS: Alanine Aminotransferase 22 U/L (6-50); Albumin Level 3.8 g/dL (3.5-5.1); Alkaline Phosphatase 86 U/L (38-126); Aspartate Amino Transferase 35 U/L (17-59); Bilirubin,Total 0.6 mg/dL (0.2-1.3)
[2023-07-28 20:39] LABS: Hepatitis B Surface Antigen Negative (Negative)
[2023-07-28 20:45] LABS: HAV RESULT Negative (Negative); Hepatitis B Core IgM Result Negative (Negative)
[2023-07-28 20:56] LABS: Hepatitis C Virus Antibody Negative (Negative)
== END 2023-07-28 11:12 | disposition home or self-care (01) ==
LOC: ANHGOSHLAB 11:12
PROVIDERS: PCP Family Medicine; Visit Provider Family Medicine
DX: R74.8 Abnormal levels of other serum enzymes (principal); I10 Essential (primary) hypertension; E78.5 Hyperlipidemia, unspecified; R13.10 Dysphagia, unspecified; D64.9 Anemia, unspecified; E11.9 Type 2 diabetes mellitus without complications; E55.9 Vitamin D deficiency, unspecified
CPT/HCPCS: 36415; 80074; 80076

== ENCOUNTER 2023-12-27 08:55 | Outpatient (CLI) | payer MEDICARE, SELFPAY ==
[2023-12-27 14:04] LABS: Hematocrit 41.9 % (42.0-52.0); Hemoglobin 13.5 g/dL (14.0-18.0); Mean Corpuscular HGB Conc 32.2 g/dl (32-36); Mean Corpuscular Hemoglobin 31.8 pg (26-34); Mean Corpuscular Volume 98.8 fl (80-100); Mean Platelet Volume 10.9 fl (7.4-10.4); Platelet Count Result 247 k/mm3 (150-375); Red Blood Count 4.24 M/mm3 (4.6-6.20); Red Cell Distribution Width 14.2 % (11.5-14.5); White Blood Count 6.7 K/mm3 (4.5-10.0)
[2023-12-27 14:54] LABS: Vitamin D 25 Hydroxy 60.3 ng/mL
[2023-12-27 16:43] LABS: Alanine Aminotransferase 17 U/L (6-50); Albumin Level 3.8 g/dL (3.5-5.1); Alkaline Phosphatase 93 U/L (38-126); Anion Gap 2 mmol/L (4-12); Aspartate Amino Transferase 86 U/L (17-59); Bilirubin,Total 0.7 mg/dL (0.2-1.3); Blood Urea Nitrogen 28 mg/dL (9-20); Carbon Dioxide 29 mmol/L (22-30); Chloride 107 mmol/L (98-107); Estimated Glomerular Filt Rate > 60; Glucose 91 mg/dL (65-110); Sodium 138 mmol/L (137-145)
[2023-12-27 19:44] LABS: Hemoglobin A1C 5.2 % (<5.7)
== END 2023-12-27 08:56 | disposition home or self-care (01) ==
LOC: ANHGOSHLAB 08:57
PROVIDERS: PCP Family Medicine; Visit Provider Family Medicine
DX: R13.10 Dysphagia, unspecified (principal); E78.5 Hyperlipidemia, unspecified; E55.9 Vitamin D deficiency, unspecified; D64.9 Anemia, unspecified; E11.9 Type 2 diabetes mellitus without complications; I10 Essential (primary) hypertension; I21.4 Non-ST elevation (NSTEMI) myocardial infarction
CPT/HCPCS: 36415; 80053; 82306; 83036; 85027

== ENCOUNTER 2024-01-10 11:10 | Outpatient (CLI) | payer MEDICARE, SELFPAY ==
--- NOTE | ~2024-01-10 | XR_ITS ---
Left Knee Technique: AP, lateral, and sunrise views were obtained. Clinical History: Pain Findings: No fracture or dislocation is seen. Osseous alignment is anatomic. There is moderate degene rative change of the patellofemoral compartment. There is mild lateral joint line spurring.. Soft tis sues are unremarkable. No joint effusion is seen. Impression: Degenerative change, as above. Reviewed, dictated and finalized at location M. Impression: Degenerative change, as above.
--- NOTE | ~2024-01-10 | XR_ITS ---
Right Knee Technique: AP, lateral, and sunrise views were obtained. Clinical History: Pain Findings: No fracture or dislocation is seen. Right knee arthroplasty in place. Soft tissues are unre markable. No joint effusion is seen. Impression: No acute abnormality. Right knee arthroplasty in place. Reviewed, dictated and finalized at location . Impression: No acute abnormality. Right knee arthroplasty in place.
== END 2024-01-10 11:11 ==
PROVIDERS: PCP Family Medicine; Visit Provider Family Medicine
DX: M17.12 Unilateral primary osteoarthritis, left knee (principal); Z96.651 Presence of right artificial knee joint
CPT/HCPCS: 73562

== ENCOUNTER 2024-02-09 13:31 | Outpatient (CLI) | payer MEDICARE, SELFPAY ==
--- NOTE | ~2024-02-09 | XR_ITS ---
Thoracic spine: Clinical Indication: Back pain COMPARISON: 01/06/2023 AP and lateral views were performed. Stable moderate compression fracture of T7. Probable mild compression fractures of T5 and T11, also s imilar to prior exam. The intervertebral disc spaces appear normal. Paravertebral soft tissues appear normal. Impression: Stable compression fractures, as detailed above, worst at T7. Reviewed, dictated and finalized at location . Impression: Stable compression fractures, as detailed above, worst at T7.
== END 2024-02-09 13:32 ==
LOC: GOSHIMG 13:33
PROVIDERS: PCP Family Medicine; Visit Provider Family Medicine
DX: M48.54XA Collapsed vertebra, not elsewhere classified, thoracic region, initial encounter for fracture (principal)
CPT/HCPCS: 72072

== ENCOUNTER 2024-07-04 09:08 | Outpatient (CLI) | payer MEDICARE, SELFPAY ==
[2024-07-04 18:59] LABS: Hematocrit 40.8 % (42.0-52.0); Hemoglobin 13.3 g/dL (14.0-18.0); Mean Corpuscular HGB Conc 32.6 g/dl (32-36); Mean Corpuscular Hemoglobin 33.5 pg (26-34); Mean Corpuscular Volume 102.8 fl (80-100); Mean Platelet Volume 11.1 fl (7.4-10.4); Platelet Count Result 234 k/mm3 (150-375); Red Blood Count 3.97 M/mm3 (4.6-6.20); Red Cell Distribution Width 12.7 % (11.5-14.5); White Blood Count 5.7 K/mm3 (4.5-10.0)
[2024-07-04 19:36] LABS: Alanine Aminotransferase 17 U/L (6-50); Albumin Level 3.7 g/dL (3.5-5.1); Alkaline Phosphatase 94 U/L (38-126); Anion Gap 5 mmol/L (4-12); Aspartate Amino Transferase 30 U/L (17-59); Bilirubin,Total 0.4 mg/dL (0.2-1.3); Blood Urea Nitrogen 24 mg/dL (9-20); Calcium 8.8 mg/dL (8.4-10.2); Carbon Dioxide 29 mmol/L (22-30); Chloride 104 mmol/L (98-107); Cholesterol 149 mg/dL (0-200); Estimated Glomerular Filt Rate > 60; Glucose 89 mg/dL (65-110); HDL Direct 55 mg/dL; Potassium 4.2 mmol/L (3.4-5.0); Sodium 138 mmol/L (137-145); Triglycerides 102 mg/dL (<150)
[2024-07-04 19:58] LABS: LDL Cholesterol Direct 62 mg/dL
[2024-07-04 20:59] LABS: Hemoglobin A1C 5.3 % (<5.7)
== END 2024-07-04 09:09 | disposition home or self-care (01) ==
PROVIDERS: PCP Family Medicine; Visit Provider Family Medicine
DX: M25.569 Pain in unspecified knee (principal); R74.8 Abnormal levels of other serum enzymes; I10 Essential (primary) hypertension; R55 Syncope and collapse; I21.4 Non-ST elevation (NSTEMI) myocardial infarction; R07.81 Pleurodynia; E11.9 Type 2 diabetes mellitus without complications; Z85.46 Personal history of malignant neoplasm of prostate
CPT/HCPCS: 36415; 80053; 80061; 83036; 85027

== ENCOUNTER 2024-07-21 10:42 | Emergency (ER) | payer MEDICARE, SELFPAY ==
--- NOTE | ~2024-07-21 | XR_ITS ---
XR chest 1V portable 07/21/2024 11:15 Indication: Rib pain after fall Procedure: AP portable chest Comparison: 12/03/2022 Findings: Cardiomegaly. Bilateral interstitial infiltrates, likely mild edema. No pleural effusion or pneumothorax. No acute osseous abnormality. Impression: 1: Probable mild interstitial edema. Reviewed, dictated and finalized at location B. Impression: 1: Probable mild interstitial edema.
[2024-07-21 10:47] VITALS: BP 162/75; PULSE 69; RESP 16; TEMP 36.5; O2SAT 100
[2024-07-21 10:58] VITALS: BP 172/87; PULSE 62; RESP 15; TEMP 36.5; O2SAT 97
--- NOTE | 2024-07-21 11:34 | ED.GENADULT ---
HPI - General Adult General Chief complaint: Fall Stated complaint: left rib pain - fell yesterday Time Seen by Provider: 07/21/24 11:03 History of Present Illness HPI narrative: 88-year-old male presenting to the emergency department for evaluation for left-sided rib pain. Patient reports he tripped over a rapid fence in his yd landed on his left side. Patient denies striking his head denies loss of consciousness. Patient was having increased left rib pain today so he presented emergency department for evaluation. Patient does take Eliquis and aspirin. Related Data Home Medications Medication Instructions Recorded Confirmed vitamins A,C,D-useh-exvkms 4,296 1 cap PO DAILY 01/23/20 02/24/24 mcg-226 mg-90 mg capsule (PreserVision AREDS) ticagrelor 90 mg tablet (Brilinta) 90 mg PO Q12H 10/29/22 02/24/24 nitroglycerin 0.4 mg sublingual 0.4 mg sublingual Q5M PRN 03/02/23 02/24/24 tablet (Nitrostat) cetirizine 10 mg capsule (Allergy 10 mg PO DAILY PRN 01/05/24 02/24/24 Relief (cetirizine)) mirabegron 50 mg tablet,extended 50 mg PO DAILY 01/05/24 02/24/24 release 24 hr (Myrbetriq) multivitamin 1 tablet PO DAILY 01/05/24 02/24/24 Fiber (psyllium husk) 1 cap BYMOUTH DAILY 01/18/24 02/24/24 acetaminophen 500 mg tablet 1,000 mg PO Q6H 02/24/24 02/24/24 ibuprofen 400 mg tablet 400 mg PO Q6H PRN 02/24/24 02/24/24 Allergies Allergy/AdvReac Type Severity Reaction Status Date / Time No Known Allergies Allergy Verified 07/09/24 11:29 Review of Systems Review of Systems: All systems reviewed & are unremarkable except as noted in HPI and below PMFSH Past Medical History Medical History Acute embolism and thrombosis of other specified deep vein of right lower extremity Chronic anticoagulation Chronic pain of right knee Coronary artery disease Stent to diagonal in March 2013. Diverticulosis Dyslipidemia Gastroesophageal reflux disease History of fractured vertebra Hypertension Kidney stones Mixed incontinence urge and stress Prostate cancer (2002) Pulmonary embolism (2002) Following prostatectomy. Type 2 diabetes mellitus Vitamin D deficiency Surgical History Surgical History History of arthroscopy of both knees History of bilateral inguinal hernia repair History of cardiac catheterization March 2013: Stent to diagonal 1. November 2014: No significant obstructive lesions. Stent to D1 ostium widely patent. 40 to 50% OM and 40% distal RCA (no change consistent with 2012). total of 5 stents History of cataract extraction with lens replacement History of colonoscopy with polypectomy History of coronary artery stent placement Stent to diagonal branch in March 2013. History of esophagogastroduodenoscopy (09/2022) Schatzki's ring. History of prostatectomy (2002) History of repair of right rotator cuff (07/2015) History of right knee joint replacement History of tonsillectomy and adenoidectomy History of ventral hernia repair Family History Family History Father Malignant neoplasm of prostate Patient's father is Mother Family history of heart disease in male family member before age 55 Family history of cardiovascular disease Sibling Hypertension Acute myocardial infarction Other Family history of arthritis Family history of malignant neoplasm Social History Social History Social History: he is retired from the [employer] program. He has 3 children . Surrogate medical decision maker: Luci Bruno (spouse) or Rin Cooper (daughter). Code status: Full code. Smoking status: Never smoker Second hand tobacco smoke exposure: No Alcohol intake: never Substance use: never Substance use type: does not use Lack of
[2024-07-21] MEDS: ACETAMINOPHEN 325 MG TABLET 650 MG PO (11:47)
[2024-07-21] MEDS: traMADol HCL (*CRX) 50 MG TABLET PO (11:47)
[2024-07-21 12:18] VITALS: BP 170/90; PULSE 86; RESP 16; TEMP 36.6; O2SAT 99
== END 2024-07-21 12:19 | disposition home or self-care (01) ==
PROVIDERS: Emergency Provider Emergency Medicine; PCP Family Medicine
DX: S20.212A Contusion of left front wall of thorax, initial encounter (principal); W19.XXXA Unspecified fall, initial encounter; Z86.718 Personal history of other venous thrombosis and embolism; Z79.01 Long term (current) use of anticoagulants; I25.10 Atherosclerotic heart disease of native coronary artery without angina pectoris; K21.9 Gastro-esophageal reflux disease without esophagitis; I10 Essential (primary) hypertension; Z85.46 Personal history of malignant neoplasm of prostate; Z90.79 Acquired absence of other genital organ(s); E11.9 Type 2 diabetes mellitus without complications; E55.9 Vitamin D deficiency, unspecified
CPT/HCPCS: 71045; 99283; A9270